=== PATIENT | female | born 1955 | race Caucasian/White ===

== ENCOUNTER 2019-09-27 07:33 | Outpatient (CLI) | payer BC, SELFPAY ==
[2019-09-27 08:31] LABS: Basophils Percent Auto 0.8 % (0.2-1.2); Eosinophils Absolute Auto 0.2 K/mm3 (0-0.3); Eosinophils Percent Auto 3.8 % (0-4.4); Hematocrit 46.6 % (37.0-47.0); Hemoglobin 14.6 g/dL (12.0-15.0); Immature Granulocyte Absolute 0.01 K/mm3 (0.00-0.031); Immature Granulocyte Percent A 0.2 % (0-0.5); Lymphocytes Absolute Auto 0.76 K/mm3 (0.9-3.2); Lymphocytes Percent Auto 16.1 % (18.3-44.2); Mean Corpuscular HGB Conc 31.3 g/dl (32-36); Mean Corpuscular Hemoglobin 28.7 pg (26-34); Mean Corpuscular Volume 91.7 fl (80-100); Mean Platelet Volume 10.4 fl (7.4-10.4); Monocytes Absolute Auto 0.3 K/mm3 (0.1-0.6); Monocytes Percent Auto 5.9 % (2.6-8.5); Neutrophils Absolute Auto 3.5 K/mm3 (1.3-6.7); Neutrophils Percent Auto 73.2 % (45.5-73.1); Platelet Count Result 221 k/mm3 (150-375); Red Blood Count 5.08 M/mm3 (4.2-5.4); Red Cell Distribution Width 14.5 % (11.5-14.5); White Blood Count 4.7 K/mm3 (4.5-10.0)
[2019-09-27 08:43] LABS: Hemoglobin A1C 5.7 % (<5.7)
[2019-09-27 08:56] LABS: Rheumatoid Factor < 8.6 IU/ML (<12)
[2019-09-27 09:03] LABS: Alanine Aminotransferase 29 U/L (4-35); Albumin Level 4.1 g/dL (3.5-5.1); Alkaline Phosphatase 57 U/L (38-126); Aspartate Amino Transferase 29 U/L (14-36); Bilirubin,Total 0.4 mg/dL (0.2-1.3); Blood Urea Nitrogen 16 mg/dL (7-17); CRP 1.2 mg/dL (<1.0); Calcium 9.2 mg/dL (8.4-10.2); Carbon Dioxide 29 mmol/L (22-30); Chloride 102 mmol/L (98-107); Cholesterol 147 mg/dL (0-200); Estimated Glomerular Filt Rate > 60; Glucose 101 mg/dL (65-105); HDL Direct 44 mg/dL; Potassium 4.3 mmol/L (3.4-5.0); Sodium 141 mmol/L (137-145); Triglycerides 116 mg/dL (<150)
[2019-09-27 09:14] LABS: LDL Cholesterol Direct 87 mg/dL
[2019-09-27 09:27] LABS: Erythrocyte Sedimentation Rate 12 mm/hr (0-20)
== END 2019-09-27 07:34 | disposition home or self-care (01) ==
PROVIDERS: PCP Family Medicine; Visit Provider Family Medicine
DX: L40.50 Arthropathic psoriasis, unspecified (principal); E11.9 Type 2 diabetes mellitus without complications; E78.5 Hyperlipidemia, unspecified; R60.0 Localized edema; Z68.42 Body mass index [BMI] 45.0-49.9, adult
CPT/HCPCS: 36415; 80053; 80061; 83036; 85025; 85652; 86140; 86430

== ENCOUNTER 2019-10-09 12:47 | Emergency (ER) | payer BC, SELFPAY ==
--- NOTE | ~2019-10-09 | XR_ITS ---
XR chest 2V DATE: 10/09/2019 13:39 INDICATION: Productive cough. Past smoker. TECHNIQUE: 2 views COMPARISON: 09/01/2018 2 view chest FINDINGS: Heart size is within normal limits. No hilar or mediastinal enlargement. No pulmonary infil trate or consolidation, pleural effusion or pulmonary vascular congestion or pneumothorax. Diffuse osteopenia. IMPRESSION: No active cardiopulmonary disease Reviewed, dictated and finalized at location B. TENDER
[2019-10-09 12:57] VITALS: BP 123/97; PULSE 89; RESP 16; TEMP 36.9; O2SAT 98
--- NOTE | 2019-10-09 13:24 | ED.URI ---
HPI - URI/Sore Throat General Chief Complaint: Upper Respiratory Infection Stated Complaint: Cough/phlegm Time Seen by Provider: 10/09/19 13:10 Source: patient Mode of arrival: ambulatory Limitations: no limitations History of Present Illness HPI Narrative: Kelly Soliz is a 63 yo female with a PMH of diabetes who comes to express care with a cough and feeling poorly for the last few days Related Data Home Medications Medication Instructions Recorded Confirmed cholecalciferol (vitamin D3) 25 mcg PO DAILY 10/09/19 10/09/19 [Vitamin D3] metformin 500 mg DAILY 10/09/19 10/09/19 pravastatin 40 mg DAILY 10/09/19 10/09/19 tacrolimus 0.1 % TOPICAL DAILY 10/09/19 10/09/19 Allergies Allergy/AdvReac Type Severity Reaction Status Date / Time ciprofloxacin Allergy Unknown Itching Verified 10/09/19 13:02 ioversol Allergy Unknown Itching Verified 10/09/19 13:02 Quinolones Allergy Unknown Itching Verified 10/09/19 13:02 Sulfa (Sulfonamide Allergy Unknown Itching Verified 10/09/19 13:02 Antibiotics) Contrast Media Allergy Severe Anaphylaxis Uncoded 10/09/19 13:02 Review of Systems Review of Systems: Narrative: CONSTITUTIONAL: Denies fever, chills, sweats. EYES: Denies visual changes, redness, discharge. ENT: Denies rhinorrhea, congestion, sore throat, otalgia. CARDIOVASCULAR: Denies chest pain, palpitations, edema. RESPIRATORY: Denies dyspnea, wheezing, mildly productive cough GASTROINTESTINAL: Denies abdominal pain, nausea, vomiting, diarrhea. GENITOURINARY: Denies dysuria, hematuria, abnormal discharge SKIN: Denies rash or itching. NEUROLOGIC: Denies numbness, or focal weakness. PSYCHIATRIC: Denies anxiety or depression. [facility] Family History Family History Father Family history of malignant neoplasm of stomach Family history of primary malignant neoplasm of liver Family history of throat cancer Family history of malignant neoplasm Mother Family history of diabetes mellitus in first degree relative Family history of malignant neoplasm Grandparent Family history of malignant neoplasm Social History Social History Smoking status: Never smoker Second hand tobacco smoke exposure: Yes Smoking end date: 08/06/03 Alcohol intake: never Gender identity (if verbalized by the patient): Female Comments At time of signature, I agree with nursing past medical, surgical, social and family history. There is no relevant family history pertinent to the presenting complaint. Exam Narrative: Exam Narrative: GENERAL: This is a well-nourished, well-developed patient, in mild distress. HEAD: normocephalic, atraumatic. EYES: Sclera clear/white. Vision is grossly intact. EARS: External ears normal, . Hearing grossly intact. NOSE: External nose normal with no obvious nasal discharge, nares without redness, no rhinorrhea. THROAT: Mucous membranes moist, posterior pharynx erythema. NECK: Neck supple, non-tender CARDIOVASCULAR: Regular rate and rhythm without murmurs, gallops, or rubs. RESPIRATORY: Diminished to auscultation. Breath sounds equal bilaterally. No wheezes, rales, or rhonchi. GASTROINTESTINAL: Abdomen soft, SKIN: warm, intact with no suspicious lesions or rash, good texture and turgor. NEURO: awake, alert, and oriented to person, place and time. There were no obvious focal neurologic abnormalities. Steady gait EXTREMITIES: Normal range of motion. BACK: Nontender without deformity or crepitance. No flank tenderness. Course Course Emergency Course: Chest x-ray neg for acute pathology Vital Signs Vital signs: Vital Signs Temperature 98.5 F 10/09/19 12:57 Pulse Rate 89 10/09/19 12:57 Respiratory Rate 16 10/09/19 12:57 Blood Pressure 123/97 H 10/09/19 12:57 Pulse Oximetry 98 10/09/19 12:57 Temperature 98.5 F 10/09/19 12:57 Pulse Rate 89 10/09/19 12:57 Respirato
== END 2019-10-09 14:20 | disposition home or self-care (01) ==
PROVIDERS: Emergency Provider Nurse Practitioner; PCP Family Medicine
DX: B34.9 Viral infection, unspecified (principal); J06.9 Acute upper respiratory infection, unspecified
CPT/HCPCS: 71046; 99213; G0463

== ENCOUNTER 2020-03-20 06:47 | Outpatient (CLI) | payer BC, SELFPAY ==
[2020-03-20 07:52] LABS: Basophils Absolute Auto 0.1 K/mm3 (0.0-0.1); Basophils Percent Auto 1.1 % (0.2-1.2); Eosinophils Absolute Auto 0.2 K/mm3 (0-0.3); Eosinophils Percent Auto 4.7 % (0-4.4); Hematocrit 44.3 % (37.0-47.0); Hemoglobin 14.1 g/dL (12.0-15.0); Immature Granulocyte Absolute 0.01 K/mm3 (0.00-0.031); Immature Granulocyte Percent A 0.2 % (0-0.5); Lymphocytes Absolute Auto 0.89 K/mm3 (0.9-3.2); Mean Corpuscular HGB Conc 31.8 g/dl (32-36); Mean Corpuscular Hemoglobin 29.4 pg (26-34); Mean Corpuscular Volume 92.3 fl (80-100); Mean Platelet Volume 10.8 fl (7.4-10.4); Monocytes Absolute Auto 0.4 K/mm3 (0.1-0.6); Monocytes Percent Auto 8.1 % (2.6-8.5); Neutrophils Absolute Auto 2.9 K/mm3 (1.3-6.7); Neutrophils Percent Auto 65.9 % (45.5-73.1); Platelet Count Result 225 k/mm3 (150-375); Red Cell Distribution Width 13.7 % (11.5-14.5); White Blood Count 4.5 K/mm3 (4.5-10.0)
[2020-03-20 07:59] LABS: Alanine Aminotransferase 32 U/L (4-35); Albumin Level 4.1 g/dL (3.5-5.1); Alkaline Phosphatase 55 U/L (38-126); Anion Gap 8 mmol/L (8-16); Aspartate Amino Transferase 32 U/L (14-36); Bilirubin,Total 0.6 mg/dL (0.2-1.3); Blood Urea Nitrogen 15 mg/dL (7-17); Carbon Dioxide 27 mmol/L (22-30); Chloride 104 mmol/L (98-107); Cholesterol 116 mg/dL (0-200); Estimated Glomerular Filt Rate > 60; Glucose 109 mg/dL (65-105); HDL Direct 40 mg/dL; Potassium 3.9 mmol/L (3.4-5.0); Sodium 139 mmol/L (137-145); Triglycerides 93 mg/dL (<150)
[2020-03-20 08:10] LABS: LDL Cholesterol Direct 58 mg/dL
[2020-03-20 10:56] LABS: Hemoglobin A1C 5.5 % (<5.7)
[2020-03-20 11:21] LABS: Creatinine Urine 286.1 mg/dL
[2020-03-20 11:24] LABS: MALB Creatinine Ratio 3.6 mg/g (0-30)
[2020-03-20 12:19] LABS: Microalbumin Urine Random 10.4 mg/L (0-16.7)
[2020-03-25 20:59] LABS: Vitamin D 1,25 (OH)2 Total 87 pg/mL (18-72); Vitamin D2 1,25 (OH)2 <8 pg/mL; Vitamin D3 1,25 (OH)2 87 pg/mL
== END 2020-03-20 06:48 | disposition home or self-care (01) ==
PROVIDERS: PCP Family Medicine; Visit Provider Family Medicine
DX: R79.89 Other specified abnormal findings of blood chemistry (principal); E78.2 Mixed hyperlipidemia; E11.59 Type 2 diabetes mellitus with other circulatory complications; L40.50 Arthropathic psoriasis, unspecified
CPT/HCPCS: 36415; 80053; 80061; 82043; 82652; 83036; 85025

== ENCOUNTER 2020-05-01 06:40 | Outpatient (CLI) | payer BC, SELFPAY ==
[2020-05-01 07:37] LABS: Uric Acid 5.3 mg/dL (2.5-7.5)
== END 2020-05-01 06:41 | disposition home or self-care (01) ==
PROVIDERS: PCP Family Medicine; Visit Provider Family Medicine
DX: L40.50 Arthropathic psoriasis, unspecified (principal)
CPT/HCPCS: 36415; 84550

== ENCOUNTER 2020-12-25 06:43 | Outpatient (CLI) | payer BC, SELFPAY ==
[2020-12-25 07:09] LABS: Basophils Percent Auto 0.8 % (0.2-1.2); Eosinophils Absolute Auto 0.3 K/mm3 (0-0.3); Eosinophils Percent Auto 4.7 % (0-4.4); Hematocrit 44.3 % (37.0-47.0); Hemoglobin 14.3 g/dL (12.0-15.0); Immature Granulocyte Absolute 0.01 K/mm3 (0.00-0.031); Immature Granulocyte Percent A 0.2 % (0-0.5); Lymphocytes Percent Auto 18.9 % (18.3-44.2); Mean Corpuscular HGB Conc 32.3 g/dl (32-36); Mean Corpuscular Hemoglobin 29.2 pg (26-34); Mean Corpuscular Volume 90.6 fl (80-100); Mean Platelet Volume 10.1 fl (7.4-10.4); Monocytes Absolute Auto 0.4 K/mm3 (0.1-0.6); Monocytes Percent Auto 7.8 % (2.6-8.5); Neutrophils Absolute Auto 3.6 K/mm3 (1.3-6.7); Neutrophils Percent Auto 67.6 % (45.5-73.1); Platelet Count Result 211 k/mm3 (150-375); Red Blood Count 4.89 M/mm3 (4.2-5.4); Red Cell Distribution Width 13.7 % (11.5-14.5); White Blood Count 5.3 K/mm3 (4.5-10.0)
[2020-12-25 07:23] LABS: Hemoglobin A1C 5.8 % (<5.7)
[2020-12-25 07:24] LABS: Alanine Aminotransferase 42 U/L (4-35); Alkaline Phosphatase 54 U/L (38-126); Anion Gap 5 mmol/L (8-16); Aspartate Amino Transferase 39 U/L (14-36); Bilirubin,Total 0.5 mg/dL (0.2-1.3); Blood Urea Nitrogen 13 mg/dL (7-17); Calcium 9.3 mg/dL (8.4-10.2); Carbon Dioxide 26 mmol/L (22-30); Chloride 109 mmol/L (98-107); Cholesterol 212 mg/dL (0-200); Estimated Glomerular Filt Rate > 60; Glucose 112 mg/dL (65-105); HDL Direct 40 mg/dL; Sodium 140 mmol/L (137-145); Triglycerides 173 mg/dL (<150); Uric Acid 6.2 mg/dL (2.5-7.5)
[2020-12-25 07:35] LABS: LDL Cholesterol Direct 125 mg/dL
[2020-12-25 09:00] LABS: Creatinine Urine 249.1 mg/dL
[2020-12-25 09:05] LABS: MALB Creatinine Ratio 4.7 mg/g (0-30); Microalbumin Urine Random 11.8 mg/L (0-16.7)
== END 2020-12-25 06:44 | disposition home or self-care (01) ==
LOC: ANHLAB 06:46
PROVIDERS: PCP Family Medicine; Visit Provider Family Medicine
DX: R63.5 Abnormal weight gain (principal); R53.82 Chronic fatigue, unspecified; I10 Essential (primary) hypertension; E78.2 Mixed hyperlipidemia; E11.59 Type 2 diabetes mellitus with other circulatory complications; E79.0 Hyperuricemia without signs of inflammatory arthritis and tophaceous disease
CPT/HCPCS: 36415; 80053; 80061; 82043; 83036; 84443; 84550; 85025

== ENCOUNTER 2021-06-08 14:47 | Outpatient (CLI) | payer BC, SELFPAY ==
[2021-06-08 15:40] LABS: Basophils Absolute Auto 0.1 K/mm3 (0.0-0.1); Basophils Percent Auto 0.9 % (0.2-1.2); Eosinophils Absolute Auto 0.2 K/mm3 (0-0.3); Eosinophils Percent Auto 3.5 % (0-4.4); Hematocrit 43.7 % (37.0-47.0); Immature Granulocyte Absolute 0.02 K/mm3 (0.00-0.031); Immature Granulocyte Percent A 0.4 % (0-0.5); Lymphocytes Absolute Auto 1.11 K/mm3 (0.9-3.2); Lymphocytes Percent Auto 20.6 % (18.3-44.2); Mean Corpuscular Hemoglobin 29.7 pg (26-34); Mean Corpuscular Volume 92.6 fl (80-100); Monocytes Absolute Auto 0.5 K/mm3 (0.1-0.6); Monocytes Percent Auto 8.5 % (2.6-8.5); Neutrophils Absolute Auto 3.6 K/mm3 (1.3-6.7); Neutrophils Percent Auto 66.1 % (45.5-73.1); Platelet Count Result 220 k/mm3 (150-375); Red Blood Count 4.72 M/mm3 (4.2-5.4); Red Cell Distribution Width 13.8 % (11.5-14.5); White Blood Count 5.4 K/mm3 (4.5-10.0)
[2021-06-08 15:52] LABS: Alanine Aminotransferase 48 U/L (4-35); Albumin Level 4.3 g/dL (3.5-5.1); Alkaline Phosphatase 51 U/L (38-126); Anion Gap 9 mmol/L (8-16); Aspartate Amino Transferase 38 U/L (14-36); Bilirubin,Total 0.5 mg/dL (0.2-1.3); Blood Urea Nitrogen 14 mg/dL (7-17); Calcium 9.2 mg/dL (8.4-10.2); Carbon Dioxide 28 mmol/L (22-30); Chloride 103 mmol/L (98-107); Estimated Glomerular Filt Rate > 60; Glucose 98 mg/dL (65-110); Potassium 4.1 mmol/L (3.4-5.0); Sodium 140 mmol/L (137-145)
[2021-06-08 18:29] LABS: Hepatitis B Surface Antigen Negative (Negative)
[2021-06-08 18:47] LABS: Hepatitis B Surface Anti Res Negative; Hepatitis C Virus Antibody Negative (Negative)
[2021-06-13 04:07] LABS: Hepatitis B Core Ab Total Nonreactive (Nonreactive)
[2021-06-13 10:43] LABS: NIL 0.02 IU/mL; Quantiferon TB Plus, 1T NEGATIVE (NEGATIVE); TB2-NIL 0.01 IU/mL
== END 2021-06-08 14:48 | disposition home or self-care (01) ==
LOC: ANHLAB 14:49
PROVIDERS: PCP Family Medicine; Visit Provider Physician Assistant
DX: Z51.81 Encounter for therapeutic drug level monitoring (principal); Z79.899 Other long term (current) drug therapy
CPT/HCPCS: 36415; 80048; 80076; 85025; 86480; 86704; 86706; 86803; 87340

== ENCOUNTER 2021-10-16 21:37 | Emergency (ER) | payer BC, SELFPAY ==
[2021-10-16 21:42] VITALS: BP 141/94; PULSE 98; RESP 20; TEMP 36.4; O2SAT 97
--- NOTE | 2021-10-16 22:34 | ED.LOWEXIN ---
HPI - Extremity Injury (Lower) General Chief Complaint: Extremity Injury, Lower Stated Complaint: lower back pain Time Seen by Provider: 10/16/21 22:00 History of Present Illness HPI Narrative: 66-year-old female presents the emergency room with acute onset of right lower back pain that radiates into her right hip. Patient states the pain is worse with lateral bend to the right and when bending forward. Denies dysuria, or fever. Denies injury or trauma. Reports back pain is alleviated with Tylenol and a heating pad. Related Data Home Medications Medication Instructions Recorded Confirmed tildrakizumab-asmn 100 mg/mL 100 mg SUBCUT [id number] ml 07/12/21 07/12/21 subcutaneous syringe Allergies Allergy/AdvReac Type Severity Reaction Status Date / Time ciprofloxacin Allergy Unknown Itching Verified 10/16/21 21:57 ioversol Allergy Unknown Itching Verified 10/16/21 21:57 Quinolones Allergy Unknown Itching Verified 10/16/21 21:57 Sulfa (Sulfonamide Allergy Unknown Itching Verified 10/16/21 21:57 Antibiotics) Contrast Media Allergy Severe Anaphylaxis Uncoded 07/12/21 16:04 Review of Systems Review of Systems: CONSTITUTIONAL: Denies fever, chills, or sweats. EYES: Denies visual changes, redness, or discharge. ENT: Denies rhinorrhea, congestion, sore throat, or otalgia. CARDIOVASCULAR: Denies chest pain, palpitations, or edema. RESPIRATORY: Denies cough or dyspnea. GASTROINTESTINAL: Denies abdominal pain, nausea, vomiting, or diarrhea. GENITOURINARY: Denies dysuria or hematuria. SKIN: Denies rash or itching. MUSCULOSKELETAL: Reports back pain. Denies joint pain, or myalgia. NEUROLOGIC: Denies headache, numbness, dizziness, or weakness. PSYCHIATRIC: Denies anxiety or depression. 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 Surgical History Surgical History H/O ventral hernia repair History of lumpectomy of right breast S/P RAUL (total abdominal hysterectomy) Family History Family History Father Family history of malignant neoplasm of stomach Family history of primary malignant neoplasm of liver Family history of throat cancer Family history of malignant neoplasm Mother Family history of diabetes mellitus in first degree relative Family history of malignant neoplasm Grandparent Family history of malignant neoplasm Social History Social History Social History: Smoking packs per day: 1.5 Smoking cigarettes per day: 30.0 Smoking status: Former smoker Tobacco type: cigarettes Second hand tobacco smoke exposure: No Smoking end date: 08/06/03 Alcohol intake: never Substance use: never Substance use type: does not use Gender identity (if verbalized by the patient): Female Sexual Orientation (if Verbalized by the Patient): Straight or Heterosexual Exam Narrative: GENERAL: Well-appearing, well-nourished, and in no acute distress. HEAD: Normocephalic, atraumatic. EYES: PERRLA and EOMI. ENT: Nares clear, no rhinorrhea or epistaxis. Mucous membranes moist. NECK: Supple. No adenopathy or masses. No carotid bruits or JVD CHEST: Clear to auscultation. No respiratory distress. No wheezes rales or rhonchi HEART: Regular rate and rhythm. No murmur heard. Normal peripheral pulses. ABDOMEN: Soft, nontender, nondistended, normal activ
[2021-10-16] MEDS: KETOROLAC (*BKC) 60 MG/2 ML VIAL IM (22:44)
== END 2021-10-16 22:53 | disposition home or self-care (01) ==
PROVIDERS: Emergency Provider Nurse Practitioner Family; PCP Family Medicine
DX: S39.012A Strain of muscle, fascia and tendon of lower back, initial encounter (principal); E78.2 Mixed hyperlipidemia; E11.59 Type 2 diabetes mellitus with other circulatory complications; E66.2 Morbid (severe) obesity with alveolar hypoventilation; L40.50 Arthropathic psoriasis, unspecified; Z85.3 Personal history of malignant neoplasm of breast; I42.9 Cardiomyopathy, unspecified; Z92.3 Personal history of irradiation; Z79.84 Long term (current) use of oral hypoglycemic drugs; Z87.891 Personal history of nicotine dependence; X58.XXXA Exposure to other specified factors, initial encounter
CPT/HCPCS: 96372; 99283; J1885

== ENCOUNTER 2021-10-21 15:42 | Outpatient (CLI) | payer BC, SELFPAY ==
--- NOTE | ~2021-10-21 | XR_ITS ---
XR lumbar spine min 4V DATE: 10/21/2021 16:28 INDICATION: Right hip pain. No injury. TECHNIQUE: AP, lateral, bilateral oblique views and coned lateral lumbosacral view COMPARISON: 06/17/2013 MRI lumbar spine 05/30/2013 lumbar spine FINDINGS: There is diffuse osteopenia. Mild dextroscoliosis of the lumbar spine. There is particularly prominent degenerative change at the apophyseal joints at L4-5 and especially L 5-S1. Moderate loss of disc space height at L1 to and L4-5. The sacroiliac joints appear normal. Abdominal aortic calcification. Status post ventral abdominal wall hernia repair. IMPRESSION: Osteopenia Mild dextroscoliosis Degenerative change Reviewed, dictated and finalized at location A.
--- NOTE | ~2021-10-21 | XR_ITS ---
XR hip RT 2V w AP pelvis DATE: 10/21/2021 16:27 INDICATION: Right hip pain TECHNIQUE: AP pelvis. AP and lateral views COMPARISON: The FINDINGS: No pelvic fracture or bone destruction. The pubic symphysis and sacroiliac joints are intac t. Hip joint spaces are symmetric and relatively preserved. No fracture, dislocation, avascular necro sis or bone destruction of the right hip. Evidence of prior ventral abdominal wall hernia repair. IMPRESSION: No significant abnormality of the right hip Reviewed, dictated and finalized at location A.
== END 2021-10-21 15:43 | disposition home or self-care (01) ==
PROVIDERS: PCP Family Medicine; Visit Provider Nurse Practitioner Gerontology
DX: M25.559 Pain in unspecified hip (principal); M54.50 Low back pain, unspecified; M85.88 Other specified disorders of bone density and structure, other site; M41.86 Other forms of scoliosis, lumbar region
CPT/HCPCS: 72110; 73502

== ENCOUNTER 2021-12-23 06:39 | Outpatient (CLI) | payer BC, SELFPAY ==
[2021-12-23 08:13] LABS: Basophils Percent Auto 0.9 % (0.2-1.2); Eosinophils Absolute Auto 0.2 K/mm3 (0-0.3); Eosinophils Percent Auto 4.1 % (0-4.4); Hematocrit 46.7 % (37.0-47.0); Hemoglobin 15.1 g/dL (12.0-15.0); Immature Granulocyte Absolute 0.01 K/mm3 (0.00-0.031); Immature Granulocyte Percent A 0.2 % (0-0.5); Lymphocytes Absolute Auto 0.91 K/mm3 (0.9-3.2); Lymphocytes Percent Auto 20.7 % (18.3-44.2); Mean Corpuscular HGB Conc 32.3 g/dl (32-36); Mean Corpuscular Hemoglobin 30.8 pg (26-34); Mean Corpuscular Volume 95.3 fl (80-100); Mean Platelet Volume 10.9 fl (7.4-10.4); Monocytes Absolute Auto 0.3 K/mm3 (0.1-0.6); Monocytes Percent Auto 7.5 % (2.6-8.5); Neutrophils Absolute Auto 2.9 K/mm3 (1.3-6.7); Neutrophils Percent Auto 66.6 % (45.5-73.1); Platelet Count Result 225 k/mm3 (150-375); Red Cell Distribution Width 13.8 % (11.5-14.5); White Blood Count 4.4 K/mm3 (4.5-10.0)
[2021-12-23 08:25] LABS: Alanine Aminotransferase 38 U/L (6-35); Albumin Level 4.3 g/dL (3.5-5.1); Alkaline Phosphatase 48 U/L (38-126); Anion Gap 7 mmol/L (8-16); Aspartate Amino Transferase 36 U/L (14-36); Bilirubin,Total 0.6 mg/dL (0.2-1.3); Blood Urea Nitrogen 17 mg/dL (7-17); Calcium 8.7 mg/dL (8.4-10.2); Carbon Dioxide 27 mmol/L (22-30); Chloride 103 mmol/L (98-107); Cholesterol 218 mg/dL (0-200); Estimated Glomerular Filt Rate > 60; Glucose 107 mg/dL (65-110); HDL Direct 39 mg/dL; Sodium 137 mmol/L (137-145); Triglycerides 174 mg/dL (<150)
[2021-12-23 08:26] LABS: Hemoglobin A1C 5.6 % (<5.7)
[2021-12-23 08:36] LABS: LDL Cholesterol Direct 139 mg/dL
== END 2021-12-23 06:40 | disposition home or self-care (01) ==
PROVIDERS: PCP Family Medicine; Referring Provider Dermatology; Visit Provider Family Medicine
DX: E78.2 Mixed hyperlipidemia (principal); E11.59 Type 2 diabetes mellitus with other circulatory complications; I42.9 Cardiomyopathy, unspecified; Z68.42 Body mass index [BMI] 45.0-49.9, adult
CPT/HCPCS: 36415; 80053; 80061; 83036; 84443; 85025

== ENCOUNTER 2022-02-10 09:47 | Outpatient (CLI) | payer BC, SELFPAY ==
--- NOTE | ~2022-02-10 | XR_ITS ---
EXAMINATION: XR chest 2V 02/10/2022 10:40 INDICATION: Rib pain PROCEDURE: 2 view chest COMPARISON: Comparison to multiple prior studies sequentially, with oldest reviewed study dated 08/2017. FINDINGS: The lungs are clear. The cardiomediastinal silhouette is within normal limits. There are no pleural effusions. There is no pneumothorax suspected. IMPRESSION: 1: NO ACUTE CARDIOPULMONARY DISEASE. Reviewed, dictated and finalized at location A.
--- NOTE | ~2022-02-10 | XR_ITS ---
EXAMINATION: XR thoracic spine 3V DATE: 02/10/2022 10:40 INDICATION: Neck pain TECHNIQUE: AP, lateral and lateral swimmer's views of the thoracic spine were obtained. COMPARISON: None. FINDINGS: There is no fracture, dislocation, or subluxation of the thoracic spine. The vertebral body heights are normal. There is mild loss of intervertebral disc space height at multiple levels. Thora cic levocurvature is noted. Small degenerative osteophytes project from the anterior endplates of mul tiple vertebral bodies. Moderate cervical spondylosis is noted. IMPRESSION: 1. Mild thoracic spondylosis. Reviewed, dictated and finalized at location B.
== END 2022-02-10 09:48 | disposition home or self-care (01) ==
PROVIDERS: PCP Family Medicine; Visit Provider Family Medicine
DX: S23.41XA Sprain of ribs, initial encounter (principal); M47.814 Spondylosis without myelopathy or radiculopathy, thoracic region
CPT/HCPCS: 71046; 72072

== ENCOUNTER 2022-11-10 06:54 | Outpatient (CLI) | payer MEDICARE, SELFPAY ==
[2022-11-10 07:12] LABS: Basophils Absolute Auto 0.1 K/mm3 (0.0-0.1); Eosinophils Absolute Auto 0.2 K/mm3 (0-0.3); Eosinophils Percent Auto 3.5 % (0-4.4); Hematocrit 47.8 % (37.0-47.0); Hemoglobin 15.2 g/dL (12.0-15.0); Immature Granulocyte Absolute 0.02 K/mm3 (0.00-0.031); Immature Granulocyte Percent A 0.4 % (0-0.5); Lymphocytes Absolute Auto 0.89 K/mm3 (0.9-3.2); Lymphocytes Percent Auto 18.5 % (18.3-44.2); Mean Corpuscular HGB Conc 31.8 g/dl (32-36); Mean Corpuscular Hemoglobin 30.6 pg (26-34); Mean Corpuscular Volume 96.4 fl (80-100); Monocytes Absolute Auto 0.4 K/mm3 (0.1-0.6); Monocytes Percent Auto 7.5 % (2.6-8.5); Neutrophils Absolute Auto 3.3 K/mm3 (1.3-6.7); Neutrophils Percent Auto 69.1 % (45.5-73.1); Platelet Count Result 206 k/mm3 (150-375); Red Blood Count 4.96 M/mm3 (4.2-5.4); Red Cell Distribution Width 13.9 % (11.5-14.5); White Blood Count 4.8 K/mm3 (4.5-10.0)
[2022-11-10 07:22] LABS: Alanine Aminotransferase 44 U/L (6-35); Albumin Level 4.3 g/dL (3.5-5.1); Alkaline Phosphatase 51 U/L (38-126); Anion Gap 6 mmol/L (8-16); Aspartate Amino Transferase 42 U/L (14-36); Bilirubin,Total 0.7 mg/dL (0.2-1.3); Blood Urea Nitrogen 13 mg/dL (7-17); Calcium 8.9 mg/dL (8.4-10.2); Carbon Dioxide 33 mmol/L (22-30); Chloride 102 mmol/L (98-107); Cholesterol 225 mg/dL (0-200); Estimated Glomerular Filt Rate > 60; Glucose 120 mg/dL (65-110); HDL Direct 44 mg/dL; Potassium 4.3 mmol/L (3.4-5.0); Sodium 141 mmol/L (137-145); Triglycerides 194 mg/dL (<150)
[2022-11-10 07:33] LABS: LDL Cholesterol Direct 132 mg/dL
[2022-11-10 08:00] LABS: Hemoglobin A1C 5.7 % (<5.7)
== END 2022-11-10 06:55 | disposition home or self-care (01) ==
PROVIDERS: PCP Family Medicine; Visit Provider Nurse Practitioner Gerontology
DX: E11.59 Type 2 diabetes mellitus with other circulatory complications (principal); E78.2 Mixed hyperlipidemia
CPT/HCPCS: 36415; 80053; 80061; 83036; 85025

== ENCOUNTER 2023-05-19 06:45 | Outpatient (CLI) | payer MEDICARE, SELFPAY ==
[2023-05-19 07:44] LABS: Basophils Percent Auto 0.8 % (0.2-1.2); Eosinophils Absolute Auto 0.1 K/mm3 (0-0.3); Eosinophils Percent Auto 2.5 % (0-4.4); Hematocrit 45.4 % (37.0-47.0); Hemoglobin 14.6 g/dL (12.0-15.0); Immature Granulocyte Absolute 0.01 K/mm3 (0.00-0.031); Immature Granulocyte Percent A 0.2 % (0-0.5); Lymphocytes Absolute Auto 0.75 K/mm3 (0.9-3.2); Lymphocytes Percent Auto 15.5 % (18.3-44.2); Mean Corpuscular HGB Conc 32.2 g/dl (32-36); Mean Corpuscular Hemoglobin 30.3 pg (26-34); Mean Corpuscular Volume 94.2 fl (80-100); Mean Platelet Volume 10.8 fl (7.4-10.4); Monocytes Absolute Auto 0.4 K/mm3 (0.1-0.6); Monocytes Percent Auto 8.7 % (2.6-8.5); Neutrophils Absolute Auto 3.5 K/mm3 (1.3-6.7); Neutrophils Percent Auto 72.3 % (45.5-73.1); Platelet Count Result 224 k/mm3 (150-375); Red Blood Count 4.82 M/mm3 (4.2-5.4); Red Cell Distribution Width 14.1 % (11.5-14.5); White Blood Count 4.8 K/mm3 (4.5-10.0)
[2023-05-19 07:54] LABS: Alanine Aminotransferase 35 U/L (6-35); Albumin Level 4.3 g/dL (3.5-5.1); Alkaline Phosphatase 38 U/L (38-126); Anion Gap 6 mmol/L (8-16); Aspartate Amino Transferase 36 U/L (14-36); Bilirubin,Total 0.8 mg/dL (0.2-1.3); Blood Urea Nitrogen 16 mg/dL (7-17); Carbon Dioxide 32 mmol/L (22-30); Chloride 102 mmol/L (98-107); Cholesterol 129 mg/dL (0-200); Estimated Glomerular Filt Rate 56; Glucose 92 mg/dL (65-110); HDL Direct 35 mg/dL; Potassium 3.1 mmol/L (3.4-5.0); Sodium 140 mmol/L (137-145); Triglycerides 119 mg/dL (<150)
[2023-05-19 08:05] LABS: LDL Cholesterol Direct 72 mg/dL
[2023-05-19 09:54] LABS: Hemoglobin A1C 5.3 % (<5.7)
== END 2023-05-19 06:46 | disposition home or self-care (01) ==
LOC: ANHLAB 06:47
PROVIDERS: PCP Family Medicine; Visit Provider Physician Assistant
DX: E11.59 Type 2 diabetes mellitus with other circulatory complications (principal); E78.2 Mixed hyperlipidemia
CPT/HCPCS: 36415; 80053; 80061; 83036; 85025

== ENCOUNTER 2023-06-01 06:33 | Outpatient (CLI) | payer MEDICARE, SELFPAY ==
[2023-06-01 07:05] LABS: Anion Gap 6 mmol/L (8-16); Blood Urea Nitrogen 15 mg/dL (7-17); Carbon Dioxide 29 mmol/L (22-30); Chloride 103 mmol/L (98-107); Estimated Glomerular Filt Rate > 60; Glucose 102 mg/dL (65-110); Potassium 3.8 mmol/L (3.4-5.0); Sodium 138 mmol/L (137-145)
== END 2023-06-01 06:34 | disposition home or self-care (01) ==
PROVIDERS: PCP Family Medicine; Visit Provider Physician Assistant
DX: E87.6 Hypokalemia (principal)
CPT/HCPCS: 36415; 80048

== ENCOUNTER 2023-11-10 06:56 | Outpatient (CLI) | payer MEDICARE, SELFPAY ==
[2023-11-10 07:16] LABS: Basophils Percent Auto 0.9 % (0.2-1.2); Eosinophils Absolute Auto 0.2 K/mm3 (0-0.3); Eosinophils Percent Auto 3.4 % (0-4.4); Hematocrit 45.3 % (37.0-47.0); Hemoglobin 14.6 g/dL (12.0-15.0); Immature Granulocyte Absolute 0.01 K/mm3 (0.00-0.031); Immature Granulocyte Percent A 0.2 % (0-0.5); Lymphocytes Absolute Auto 0.79 K/mm3 (0.9-3.2); Mean Corpuscular HGB Conc 32.2 g/dl (32-36); Monocytes Absolute Auto 0.3 K/mm3 (0.1-0.6); Monocytes Percent Auto 7.3 % (2.6-8.5); Neutrophils Absolute Auto 3.1 K/mm3 (1.3-6.7); Neutrophils Percent Auto 70.2 % (45.5-73.1); Platelet Count Result 217 k/mm3 (150-375); Red Blood Count 4.87 M/mm3 (4.2-5.4); Red Cell Distribution Width 13.7 % (11.5-14.5); White Blood Count 4.4 K/mm3 (4.5-10.0)
[2023-11-10 07:26] LABS: Alanine Aminotransferase 31 U/L (6-35); Albumin Level 4.1 g/dL (3.5-5.1); Alkaline Phosphatase 44 U/L (38-126); Anion Gap 4 mmol/L (4-12); Aspartate Amino Transferase 28 U/L (14-36); Bilirubin,Total 0.7 mg/dL (0.2-1.3); Blood Urea Nitrogen 16 mg/dL (7-17); Calcium 9.6 mg/dL (8.4-10.2); Carbon Dioxide 29 mmol/L (22-30); Chloride 105 mmol/L (98-107); Cholesterol 134 mg/dL (0-200); Estimated Glomerular Filt Rate > 60; Glucose 94 mg/dL (65-110); HDL Direct 41 mg/dL; Potassium 3.8 mmol/L (3.4-5.0); Sodium 138 mmol/L (137-145); Triglycerides 111 mg/dL (<150)
[2023-11-10 07:37] LABS: LDL Cholesterol Direct 83 mg/dL
[2023-11-10 08:58] LABS: Hemoglobin A1C 5.3 % (<5.7)
== END 2023-11-10 06:57 | disposition home or self-care (01) ==
LOC: ANHLAB 06:59
PROVIDERS: PCP Family Medicine; Visit Provider Physician Assistant
DX: I42.9 Cardiomyopathy, unspecified (principal); E11.59 Type 2 diabetes mellitus with other circulatory complications; E78.2 Mixed hyperlipidemia; K76.0 Fatty (change of) liver, not elsewhere classified
CPT/HCPCS: 36415; 80053; 80061; 83036; 85025

== ENCOUNTER 2024-02-01 06:32 | Outpatient (CLI) | payer MEDICARE, SELFPAY ==
--- NOTE | ~2024-02-01 | XR_ITS ---
EXAMINATION: XR lumbar spine 2-3V DATE: 02/01/2024 07:05 INDICATION: Low back pain, unspecified. TECHNIQUE: 3 views of lumbar spine were obtained. COMPARISON: Lumbar spine radiographs 10/21/2021 FINDINGS: There is 5 degrees dextrocurvature of thoracolumbar spine. Vertebral body heights are jenn l. There is mildly decreased disc height at L1-L2 and L4-L5. There is multilevel facet joint osteoart hritis, severe in lower lumbar spine. Surgical clips overlie the abdomen. IMPRESSION: 1. Mild lumbar spondylosis. Reviewed, dictated and finalized at location A. IMPRESSION: 1. Mild lumbar spondylosis.
--- NOTE | ~2024-02-01 | XR_ITS ---
EXAMINATION: XR hip LT min 2V DATE: 02/01/2024 07:05 INDICATION: Left hip pain. TECHNIQUE: 2 views of left hip were obtained. COMPARISON: None. FINDINGS: Bone alignment is normal. No fracture. There is mild left hip osteoarthritis. Osteitis pubi s is noted. Surgical clips overlie the abdomen. IMPRESSION: 1. Mild left hip osteoarthritis. Reviewed, dictated and finalized at location A.
== END 2024-02-01 06:33 | disposition home or self-care (01) ==
PROVIDERS: PCP Family Medicine; Visit Provider Physician Assistant
DX: M54.50 Low back pain, unspecified (principal); M25.552 Pain in left hip; M43.06 Spondylolysis, lumbar region; M16.12 Unilateral primary osteoarthritis, left hip
CPT/HCPCS: 72100; 73502

== ENCOUNTER 2024-08-19 10:34 | Outpatient (CLI) | payer MEDICARE, SELFPAY ==
--- NOTE | ~2024-08-19 | XR_ITS ---
XR_[id number] Ordering provider: Carol Ann Desir DO History: . M62.830 - Muscle spasm of back . Comparison: None. FINDINGS: VERTEBRAL BODIES: Normal height and alignment. No visible fracture or subluxation. The dens is intact . Degenerative changes of the spine. DISK SPACES: Narrowing of the disc C5-C6. Multilevel uncovertebral joint osteoarthritic changes. PARASPINOUS SOFT TISSUES: No prevertebral soft tissue swelling. IMPRESSION: No acute osseous abnormality cervical spine. Degenerative disc disease at the level of C5-C6. Reviewed, dictated and finalized at location A. ANTLER
--- NOTE | ~2024-08-19 | XR_ITS ---
Thoracic spine: Clinical Indication: Muscle spasm AP and lateral views were performed. No fracture is seen. There is normal alignment of the vertebrae. There is mild degenerative disc franklin nge, especially the lower thoracic spine. Paravertebral soft tissues appear normal. Impression: Mild degenerative spondylosis, as above. Reviewed, dictated and finalized at location . WASHER Impression: Mild degenerative spondylosis, as above.
== END 2024-08-19 10:35 | disposition home or self-care (01) ==
LOC: ANHIMG 10:37
PROVIDERS: PCP Family Medicine; Visit Provider Family Medicine
DX: M47.894 Other spondylosis, thoracic region (principal); M50.322 Other cervical disc degeneration at C5-C6 level
CPT/HCPCS: 72040; 72072

== ENCOUNTER 2024-09-20 07:04 | Outpatient (CLI) | payer MEDICARE, SELFPAY ==
--- OUTSIDE RECORDS SUMMARY | 2024-09-20 07:07 | XMS_ITS | Clinical Summary ---
Author Organization [facility] Address [address] [place] [address] Care Team Providers Care Counter Dish Carrier Name Role Phone Carol Ann Desir Primary Care Provider [phone] Source Comments [facility],non-owned Affiliates and Associated Physician Practices is amultiple site organization consisting of ambulatory clinics and hospital sitesin [place], [place], [place] and [place]. This disclosure is being madepursuant to the Care Everywhere program and may not contain all information available regarding this patient. Last updated 18.[facility] Allergies Active Allergy Reactions Criticality Noted Date Comments Ciprofloxacin Itching Low Contrast-Iodinated Agents For Ct/Other Other Low 06/18/2015 Trouble breathing Quinolones Skin Reactions Medium Sulfa Drugs Itching Low 06/18/2015 Medications * Be aware that medications may not be up to date on this document. Alwaysverify current medications with the patient. Medication Sig Dispensed Refills Start Date End Date Status metFORMIN (GLUCOPHAGE) 500 MG tablet 12/06/2016 Active tacrolimus (PROTOPIC) 0.1 % ointment 100 g 5 12/25/2016 Active pravastatin (PRAVACHOL) 40 MG tablet 12/06/2016 Active Vitamin D3 (CHOLECALCIFEROL) 2000 UNITS capsule Take by mouth. 12/25/2016 Ac tive Apremilast (OTEZLA) 30 MG Take by mouth 2 times daily Active Ivermectin (SOOLANTRA) 1 % To face prn Active senna-docusate (SENOKOT-S) 8.6-50 MG tablet Take 1 tablet by mouth once daily 30 tablet 02/28/2019 Active Additional Information Patient not taking.Reported on 09/24/2019 acetaminophen (TYLENOL) 325 MG tablet Take 2 tablets by mouth every 6 hours as needed for Pain Maximum allowable Acetaminophen amount = 4 Grams (4000 mg) / 24 hours. 30 tablet 02/28/2019 Active Additional Information Patient not taking.Reported on 09/24/2019 ibuprofen (MOTRIN) 600 MG tablet Take 1 tablet by mouth every 6 hours as needed for Pain 30 tablet 02/28/2019 Active Additional Information Patient not taking.Reported on 09/24/2019 oxyCODONE (OXY-IR) 5 MG capsule Take 1 capsule by mouth every 6 hours as needed for Pain 30 tablet 02/28/2019 Active Additional Information Patient not taking.Reported on 09/24/2019 Active Problems No known active problems Family History Medical History Relation Name Comments Cancer Father prostate Psoriasis Father CVA Mother Cancer Mother lung Allergy (Severe) Neg Hx Cancer - Breast Neg Hx Cancer - Skin, Melanoma Neg Hx Cancer - Skin, Non Melanoma Neg Hx Eczema Neg Hx Hemophilia Neg Hx Rashes/Skin Problems Neg Hx Relation Name Status Comments Father Mother Social History Tobacco Use Types Packs/Day Years Used Date Smoking Tobacco: Former Cigarettes Smokeless Tobacco: Never Alcohol Use Standard Drinks/Week Comments No 0 (1 standard drink = 0.6 oz pur e alcohol) Sex and Gender Information Value Date Recorded Sex Assigned at Not on file Gender Identity Not on file Sexual Orientation Not on file Last Filed Vital Signs Vital Sign Reading Time Taken Comments Blood Pressure 121/80 06/04/2024 9:20 AM CDT Pulse 76 06/04/2024 9:20 AM CDT Temperature 36.4 C (97.6 F) 03/22/2020 2:56 PM CDT Respiratory Rate 16 06/04/2024 9:20 AM CDT Oxygen Saturation 96% 06/04/2024 9:20 AM CDT Inhaled Oxygen Concentration - - Weight 108 kg (238 lb) 06/04/2024 9:20 AM CDT Height 167.6 cm (5' 6 ) 06/04/2024 9:20 AM CDT Body Mass Index 38.41 06/04/2024 9:20 AM CDT Plan of Treatment Health Maintenance Due Date Last Done Comments COLOGUARD (AGES 45-75) - COLON CA SCREENING 1957 COLON MONITORING 1957 COLONOSCOPY - COLON CA SCREENING 1957 CT COLONOGRAPHY - COLON CA SCREENING 1957 Colorectal Cancer Screening 1957 FIT - COLON CA SCREENING 1957 FLEX SIG - COLON CA SCREENING 1957 HEPATITIS C SCREENING 10/09/1975 DTAP/TDAP/TD VACCINES (1 - Tdap) 1976 PNEUMOCOCCAL VACCINE 50+ (1 of 1 - PCV) 10/14/2007 ZOSTER VACCINE (1 of 2) 10/14/2007 MAMMOGRAM 07/09/2017 07/09/2015, 11/2014, 02/24/2014, Additional history exists COVID-19 VACCINE (1 - 2023- season) 2024 INFLUENZA VACCINE (#1) 2024 SCREENING FOR DIABETES 05/07/2024 9, 02/28/2019, 02/18/2019, Additional history exists DEPRESSION SCREENING 08/06/2024 MEDICARE AWV CALENDAR YEAR 2024 Respiratory Syncytial Virus (RSV) Vaccine Pt: or over 60 yrs (1 - 1-dose 75+ series) 2032 BONE DENSITY TESTING Completed 07/28/2016 HEPATITIS B VACCINE Aged Out No longe r eligible based on patient's age to complete this topic HIB VACCINE Aged Out No longer eligi ble based on patient's age to complete this topic HPV VACCINE Aged Out No longer eligi ble based on patient's age to complete this topic MENINGOCOCCAL (Group B) VACCINE Aged Out No longer eligible based on patient's age to complete this topic MENINGOCOCCAL VACCINE Aged Out No raphael nadya eligible based on patient's age to complete this topic Medical Devices Implanted Type Area Mechanical Cad Designer Device Identifier Shelf Expiration Date Model / Serial / Lot Mesh Srg Ventralight St Sepra Echo Implanted:Qty: 1 on 02/28/2019 by Vesna Ba MD at [facility] N/A: Abdomen [employer] 11/01/2019 [id number] / / [id number] Procedures Procedure Name Priority Date/Time Associated Diagnosis Comments GLUCOSE - POINT OF CARE Routine 02/28/2019 11:43 AM CDT from Last 3 Months or Most Recently Relevant to Health Maintenance Results * (ABNORMAL) GLUCOSE - POINT OF CARE (02/28/2019 11:43 AM CDT) Glucose WB/POC 111(H) 70 - 106 mg/dL 02/28/2019 11:55 AM CDT [facility] Specimen Type Venous 02/28/2019 11:55 AM CDT [facility] Blood BLOOD SPECIMEN / Unknown 02/28/2019 11:43 AM CDT 02/28/2019 11:55 AM CDT Vesna Ba MD LAB - POINT OF CARE ORDERABLES Performing Organization Address City/State/[facility] Co de Phone Number [facility] [address] [place] [address] from Last 3 Months or Most Recently Relevant to Health Maintenance Care Teams Counter Dish Carrier Relationship Specialty Start Date End Date Carol Ann Desir DO PCP - General Student Resident 05/07/24
--- OUTSIDE RECORDS SUMMARY | 2024-09-20 07:07 | XMS_ITS | Referral Summary ---
Author Organization [facility] [employer] Address [address] [place] [address] Care Team Providers Care Business Systems Technician Name Role Phone Carol Ann Desir Primary Care Provider [phone] Source Comments [facility] [employer],non-owned Affiliates and Associated Physician Practices is amultiple site organization consisting of ambulatory clinics and hospital sitesin [place], [place], [place] and [place]. This disclosure is being madepursuant to the Care Everywhere program and may not contain all information available regarding this patient. Last updated 18.[facility] [employer] Allergies Active Allergy Reactions Criticality Noted Date [...] 09/24/2019 Active Problems No known active problems Social History Tobacco Use Types Packs/Day Years [...] 06/04/2024 9:20 AM CDT Plan of Treatment Not on file Medical Devices Implanted Type Area Owner Consulting Engineer Device Identifier Shelf Expiration Date Model / Serial / Lot Mesh Srg Ventralight St Sepra Echo Implanted:Qty: 1 on 02/28/2019 by Vesna Ba MD at [facility] N/A: Abdomen [employer] 11/01/2019 [id number] / / [id number] Procedures Procedure Name Priority Date/Time Associated Diagnosis Comments GLUCOSE - POINT OF CARE Routine 02/28/2019 11:43 AM CDT from Last 3 Months or Most Recently Relevant to Health Maintenance Results * (ABNORMAL) GLUCOSE - POINT OF CARE (02/28/2019 11:43 AM CDT) Glucose WB/POC 111(H) 70 - 106 mg/dL 02/28/2019 11:55 AM CDT [facility] Specimen Type Venous 02/28/2019 11:55 AM CDT [facility] Blood BLOOD SPECIMEN / Unknown 02/28/2019 11:43 AM CDT 02/28/2019 11:55 AM CDT Vesna Ba MD LAB - POINT OF CARE ORDERABLES [facility] [address] [place] [address] from Last 3 Months or Most Recently Relevant to Health Maintenance Care Teams Business Systems Technician Relationship Specialty Start Date End Date Carol Ann Desir DO PCP - General Student Resident 05/07/24
--- OUTSIDE RECORDS SUMMARY | 2024-09-20 07:07 | XMS_ITS | Clinical Summary ---
Author Organization [facility] Address [address] [place] [address] Phone Care Team Providers Care Loan Workout Officer Name Role Phone Jacki Barrientos MD Unavailable [phone] Arash Pollard MD Unavailable [phone] Mychal Álvarez MD Unavailable [phone] Virgen Cueva Unavailable Unavailable Provider, Not On File Primary Care Provider Unav ailable Allergies Active Allergy Reactions Criticality Noted Date Comments Ciprofloxacin Itching Iodinated Contrast Media Other (see Comments) 06/18/2015 Trouble breathing Quinolones Hives Sulfa Antibiotics Itching 06/18/2015 Medications tacrolimus (PROTOPIC) 0.1 % Ointment Apply 1 Tube 2 times daily. Apply thin film to affected area(s) as directed. Active Calcium Carbonate (CALCIUM 600 PO) Take 600 mg by mouth 2 times daily. Reported on 10/24/2016 Active Cholecalciferol (VITAMIN D3) 2000 UNIT Capsule Take by mouth. Activ e metFORMIN (GLUCOPHAGE) 500 MG Tablet Take 1 Tab by mouth daily. 90 Tab 5 7 Active Additional Information Patient taking differently: 1,000 mgOral DAILY, Reported on 05/14/2024 pravastatin (PRAVACHOL) 40 MG Tablet Take 1 Tab by mouth daily. 90 Tab 5 7 Active clobetasol (TEMOVATE) 0.05 % Ointment Apply 2 times daily. Active fexofenadine (ROMA) 180 MG TabletIndicatio ns:Itchy skin of anus and genitals Take 1 Tab by mouth daily. 30 Tab 3 7 Active furosemide (LASIX) 20 MG Tablet Take 20 mg by mouth daily. Active rosuvastatin (CRESTOR) 5 MG Tablet Take 5 mg by mouth daily. Active Ozempic, 2 MG/DOSE, 8 MG/3ML Solution Pen-injector 2 mg by Subcutaneous route once a week. TAKES ON FRIDAYS. INSTRUCTED TO HOLD FOR 7 DAYS PRIOR TO SURGERY ON 06/30/2024 Active spironolactone (ALDACTONE) 25 MG Tablet Take 25 mg by mouth daily. Active Apremilast (Otezla) 30 MG Tablet Take 2 Tablets by mouth daily. Active cyclobenzaprine (FLEXERIL) 5 MG Tablet Take 5 mg by mouth 3 times daily as needed for Muscle spasms. Active Active Problems Problem Noted Date Diagnosed Date Psoriasis 12/17/2015 Obesity, morbid, BMI 50 or higher 09/17/2015 Prediabetes 09/17/2015 HLD (hyperlipidemia) 09/17/2015 Fatty liver disease, nonalcoholic 09/17/2015 Malignant neoplasm of breast, right Cancer Staging:Clinical stage from 02/24/2014:Stage IA(T1, N0, cM0) - Unsigned Pathologic: T1c, N0, cM0 - Unsigned Resolved Problems Problem Noted Date Diagnosed Date Resolved Date Osteoporosis 10/22/2015 09/01/2016 Encounters Date Type Department Care Team Description 06/30/2024 10:11 AM LENS ASSORTER Anesthesia Event [facility] Periop [address] [place] [address] Curtis Arthur MD 06/30/2024 10:00 AM LENS ASSORTER - 06/30/2024 10:20 AM LENS ASSORTER Surgery [facility] [address] [place] [address] Dina Edward MD PhD CATARACT EXTRACTION WITH INTRAOCULAR LENS PLACEMENT, RIGHT EYE 06/30/2024 8:20 AM LENS ASSORTER - 06/30/2024 10:48 AM LENS ASSORTER Hospital Encounter [facility] Preop/Pacu II [address] [place] [address] Dina Edward MD PhD Discharge Disposition: Discharged to home or Selfcare 06/30/2024 Travel from Last 3 Months Immunizations Immunization Administration Dates Next Due PUR TDAP 7+ YRS IM 09/06/2016 Family History Medical History Relation Name Comments Cancer Father Laryngeal Diabetes Mother Heart Disease Mother Hypertension Mother Lung Cancer Mother Stroke Mother Breast Cancer Sister Relation Name Status Comments Father Mother Sister Social History Tobacco Use Types Packs/Day Years Used Date Smoking Tobacco: Former Cigarettes 2 5 0 08/06/1989 - 08/06/1994 Smokeless Tobacco: Never Tobacco Cessation:Counseling Given: Not Answered Alcohol Use Standard Drinks/Week Comments No 0 (1 standard drink = 0.6 oz pur e alcohol) Comments No Sex and Gender Information Value Date Recorded Sex Assigned at Not on file Legal Sex Female 8:58 PM CDT Gender Identity Not on file Sexual Orientation Not on file Last Filed Vital Signs Vital Sign Reading Time Taken Comments Blood Pressure 120/70 06/30/2024 10:44 AM LENS ASSORTER Pulse 75 06/30/2024 8:34 AM LENS ASSORTER Temperature 37.1 C (98.8 F) 06/30/2024 10:44 AM LENS ASSORTER Respiratory Rate 16 06/30/2024 10:44 AM LENS ASSORTER Oxygen Saturation 97% 06/30/2024 10:44 AM LENS ASSORTER Inhaled Oxygen Concentration - - Weight 108 kg (238 lb) 06/18/2024 1:53 PM LENS ASSORTER Height 167.6 cm (5' 6 ) 06/18/2024 1:53 PM LENS ASSORTER Body Mass Index 38.41 06/18/2024 1:53 PM LENS ASSORTER Plan of Treatment Health Maintenance Due Date Last Done Comments Hepatitis C Virus (HCV) Screening 1955 Pneumococcal Immunization (5 0+ years) (1 of 2 - PCV) 1976 Zoster Immunization (1 of 2) 1976 Cologuard 10/14/2007 Immunochemical Fecal Occult Blood 10/14/2007 Mammogram 07/09/2016 07/09/2015, 01/26/2014 DEXA Bone Density 07/28/2018 07/28/2016 Influenza Immunization (#1) 2024 SARS-COV-2 Immunization ( season) 2024 07/23/2021, 11/12/2020, 10/20/2020 Colonoscopy 11/02/2025 11/03/2015 Colorectal Cancer Screening 11/02/2025 Td Immunization Every 10 Yea rs (Adults With 1 Tdap) 09/06/2026 09/06/2016 Respiratory Syncytial Virus (RSV) Immunization (Adult) (1 - 1-dose 75+ series) 2032 11/03/2015 Hepatitis B Immunization Aged Out No longer eligible based on patient's age to complete this topic Meningococcal Immunization (ACWY) Aged Out No longer eligible b ased on patient's age to complete this topic Rotavirus Immunization Aged Out No lo nger eligible based on patient's age to complete this topic Medical Devices Implanted Type Area Restaurant Hourly Manager Device Identifier Shelf Expiration Date Model / Serial / Lot Technis 1-Piece Iol With Simplicity Delivery Sysetm Implanted:Qty: 1 on 05/26/2024 by Dina Edward MD PhD at [facility] 06/14/2026 [id number] / [id number] / [id number] Right Lens Implanted:Qty: 1 on 06/30/2024 by Dina Edward MD PhD at [facility] Right: Eye [employer] 07/07/2026 [id number] / [id number] / [id number] Procedures Procedure Name Priority Date/Time Associated Diagnosis Comments CATARACT EXTRACTION WITH IOL IMPLANT 06/30/2024 10:07 AM LENS ASSORTER VISUALLY SIGNIFICANT CATARACT, RIGHT EYE Special Needs hx of diabetes (instructed to hold Ozempic for 7 days prior to surgery) right breast cancer, psoriasis 5ft 6in 238lb POCT GLUCOSE Routine 06/30/2024 8:38 AM LENS ASSORTER THEE BONE DENSITOMETRY AXIAL SKELETON Routine 07/28/2016 8:27 AM LENS ASSORTER Osteoporosis HM COLONOSCOPY Routine 11/03/2015 [facility] DIAG BILATERAL DIGITAL W CAD Routine 07/09/2015 9:50 AM LENS ASSORTER Malignant neoplasm of right female breast, unspecified site of breast from Last 3 Months or Most Recently Relevant to Health Maintenance Results * POCT Glucose (06/30/2024 8:38 AM LENS ASSORTER) GLUCOSE,BEDSIDE POCT 90 70 - 99 mg/dL 06/30/2024 8:45 AM LENS ASSORTER [facility] Comment:Patient RN Performed Blood 06/30/2024 8:38 AM LENS ASSORTER 06/30/2024 8:44 AM LENS ASSORTER us None Provider POINT OF CARE TESTING Final Resu lt [facility] [place] [address] * [facility] BONE DENSITOMETRY AXIAL SKELETON (07/28/2016 8:27 AM LENS ASSORTER) Anatomical Region Laterality Modality BODY N/A Other 07/28/2016 9:14 AM LENS ASSORTER Impressions 07/28/2016 9:18 AM LENS ASSORTER IMPRESSION: Low bone mass Bone mineral density: Normal (T-score above or = -1.0) Low bone mass (T-score between -1.0 and -2.5) replaces the previously used term osteopenia Osteoporosis (T-score = or below -2.5) Medical evaluation for secondary causes of low bone mineral density may be appropriate. FRAX is a World Health Organization validated fracture risk assessment tool that calculates a person's 10 year probability of a major osteoporosis related fracture and hip fracture. According to the National Osteoporosis Foundation guidelines, postmenopausal women and men age 50 or older with low bone mass and a 10 year probability of a major osteoporosis related fracture = or greater than 20% or a 10 year probability of a hip fracture = or greater than 3% should be considered for treatment. For further information, including treatment recommendations, please refer to the 2013 ISCD Official Positions (http://www.iscd.org) and the NOF's Clinician's Guide to Prevention and Treatment of Osteoporosis (http://www.nof.org/professionals/clinical-guidelines) Narrative 07/28/2016 9:18 AM LENS ASSORTER EXAMINATION: DXA Bone Density HISTORY: 60 year old female with given history of screening. Current Height: 64 inches Maximum Height: Not known inches Weight: 300 pounds RISK FACTORS: None COMPARISON(S): 04/18/2014 CULINARY INTERN/MODEL: Modustri (S/N [id number]) FINDINGS: AP lumbar spine L1-L4 Total BMD is 0.89 g/zo4X-gkbaz is -2.5 Most recent prior BMD was 0.81 g/cm2 There has been a 9.8% increase in BMD which is statistically significant. Left Hip Current Total BMD is 0.98 g/ft2H-aixmb is -0.3 Most recent prior Total BMD was 1.0 g/cm2 There has been a 3.6% decrease in BMD which is statistically significant. Current femoral neck BMD is 0.89 g/ty8T-xypah is -1.0 Fracture risk assessment (FRAX): 10 year risk for a major osteoporotic fracture is 5.5 % 10 year risk for a hip fracture is 0.3 % The FRAX tool has not been validated in patients currently or previously treated with pharmacotherapy for osteoporosis. In such patients, clinical judgement must be exercised in interpreting FRAX scores as the fracture risk may be overestimated. THIS IS AN ELECTRONICALLY VERIFIED REPORT 07/28/2016 9:14 AM: Jamari Masterson M.D. Radiologist AR:janene JOSTIN Procedure Note Corey Medina MD - 07/28/2016 EXAMINATION: DXA Bone Density HISTORY: 60 year old female with given history of screening. Current Height: 64 inches Maximum Height: Not known inches Weight: 300 pounds RISK FACTORS: None COMPARISON(S): 04/18/2014 CULINARY INTERN/MODEL: Modustri (S/N [id number]) FINDINGS: AP lumbar spine L1-L4 Total BMD is 0.89 g/mk0D-qppav is -2.5 Most recent prior BMD was 0.81 g/cm2 There has been a 9.8% increase in BMD which is statistically significant. Left Hip Current Total BMD is 0.98 g/ip4E-ptgyd is -0.3 Most recent prior Total BMD was 1.0 g/cm2 There has been a 3.6% decrease in BMD which is statistically significant. Current femoral neck BMD is 0.89 g/hv1I-zhvna is -1.0 Fracture risk assessment (FRAX): 10 year risk for a major osteoporotic fracture is 5.5 % 10 year risk for a hip fracture is 0.3 % The FRAX tool has not been validated in patients currently or previously treated with pharmacotherapy for osteoporosis. In such patients, clinical judgement must be exercised in interpreting FRAX scores as the fracture risk may be overestimated. THIS IS AN ELECTRONICALLY VERIFIED REPORT 07/28/2016 9:14 AM: Corey Medina M.D. Corey Medina M.D. Radiologist AR:janene JOSTIN IMPRESSION: Low bone mass Bone mineral density: Normal (T-score above or = -1.0) Low bone mass (T-score between -1.0 and -2.5) replaces the previously used term osteopenia Osteoporosis (T-score = or below -2.5) Medical evaluation for secondary causes of low bone mineral density may be appropriate. FRAX is a World Health Organization validated fracture risk assessment tool that calculates a person's 10 year probability of a major osteoporosis related fracture and hip fracture. According to the National Osteoporosis Foundation guidelines, postmenopausal women and men age 50 or older with low bone mass and a 10 year probability of a major osteoporosis related fracture = or greater than 20% or a 10 year probability of a hip fracture = or greater than 3% should be considered for treatment. For further information, including treatment recommendations, please refer to the 2013 ISCD Official Positions (http://www.iscd.org) and the NOF's Clinician's Guide to Prevention and Treatment of Osteoporosis (http://www.nof.org/professionals/clinical-guidelines) us Terri Sim MD IMG DEXA ORDERABLES Final Re sult * HM COLONOSCOPY (11/03/2015) us Terri Sim MD PROCEDURE/MINOR SURGICAL ORD ERABLES Final Result * Diag Mammogram (07/09/2015 9:50 AM LENS ASSORTER) Anatomical Region Laterality Modality breast Bilateral Mammography 07/09/2015 8:53 AM LENS ASSORTER Narrative 07/10/2015 12:58 PM LENS ASSORTER - THEE DIAG BILATERAL DIGITAL W CAD BILATERAL DIGITAL DIAGNOSTIC MAMMOGRAM WITH CAD WITH MEDIOLATERAL MEDIOLATERAL OBLIQUE CRANIOCAUDAL: 07/09/2015 The study was acquired using digital technology and interpreted from soft copy. Current study was also evaluated with ICAD version 7.2. CLINICAL: Previous history of breast cancer 2013. No current complaints. Sister with pre-menopausal breast cancer. COMPARISONS: Comparison is made to exams dated: 01/26/2014, 01/26/2014 [facility], 06/04/2012, and 05/25/2012 Mychal Murillo Md. BREAST TISSUE:There are scattered fibroglandular densities in both breasts. FINDINGS: The right breast has post-operative findings. There is an asymmetry in the right breast middle depth medial region seen on the craniocaudal view only. No other significant masses, calcifications, or other findings are seen in either breast. IMPRESSION: BI-RAD 0 ADDITIONAL IMAGING EVALUATION NEEDED The asymmetry in the right breast is indeterminate. Craniocaudal view with spot compression view as well as a possible ultrasound are recommended. An immediate follow-up is recommended. The patient has been or will be contacted. Electronically signed by: Kody cancino/rodrigo:07/09/2015 16:48:34 Nursing Support Worker: Jackie JOHNSON(Inocencio)(Radha), [facility] letter sent: Additional Imaging Reading location: [facility] BI-RADS: 0 Additional Imaging Evaluation Needed Procedure Note Kody Gambino MD - 07/10/2015 - THEE DIAG BILATERAL DIGITAL W CAD BILATERAL DIGITAL DIAGNOSTIC MAMMOGRAM WITH CAD WITH MEDIOLATERAL MEDIOLATERAL OBLIQUE CRANIOCAUDAL: 07/09/2015 The study was acquired using digital technology and interpreted from soft copy. Current study was also evaluated with ICAD version 7.2. CLINICAL: Previous history of breast cancer 2013. No current complaints. Sister with pre-menopausal breast cancer. COMPARISONS: Comparison is made to exams dated: 01/26/2014, 01/26/2014 [facility], 06/04/2012, and 05/25/2012 Mychal Murillo Md. BREAST TISSUE:There are scattered fibroglandular densities in both breasts. FINDINGS: The right breast has post-operative findings. There is an asymmetry in the right breast middle depth medial region seen on the craniocaudal view only. No other significant masses, calcifications, or other findings are seen in either breast. IMPRESSION: BI-RAD 0 ADDITIONAL IMAGING EVALUATION NEEDED The asymmetry in the right breast is indeterminate. Craniocaudal view with spot compression view as well as a possible ultrasound are recommended. An immediate follow-up is recommended. The patient has been or will be contacted. Electronically signed by: Kody cancino/rodrigo:07/09/2015 16:48:34 Nursing Support Worker: Jackie JOHNSON(Inocencio)(Radha), [facility] letter sent: Additional Imaging Reading location: [facility] BI-RADS: 0 Additional Imaging Evaluation Needed us Jacki Barrientos MD IMG MAMMO ORDERABLES F inal Result from Last 3 Months or Most Recently Relevant to Health Maintenance Insurance MEDICARE [facility] Care Teams Loan Workout Officer Relationship Specialty Start Date End Date Provider, Not On File [place] PCP - General 05/26/24 Jacki Barrientos MD Consulting Physician General Surgery 06/17/15 Arash Pollard MD Consulting Physician Oncology 06/18/15 Mychal Álvarez MD Consulting Physician Radiation Oncology 06/18/15 Virgen Cueva Gastroenterology 09/01/16
--- OUTSIDE RECORDS SUMMARY | 2024-09-20 07:07 | XMS_ITS | Referral Summary ---
Author Organization [facility] [address] Address [address] [place] [address] Care Team Providers Care Pump Installation And Servicer Name Role Phone Toma Perea MD Primary Care Provider Allergies Active Allergy Reactions Criticality Noted Date Comments Ciprofloxacin Hives Medium 09/27/2018 Iodinated Contrast Media Shortness of breath High Quinolones Hives Medium 09/27/2018 Sulfa (Sulfonamide Antibiotics) Hives Medium 09/07 Social History Tobacco Use Types Packs/Day Years Used Date Smoking Tobacco: Never Assessed Personal Safety Answer Date Recorded Getting School Help Needed Not on file 10/19 Comments Unknown Sex and Gender Information Value Date Recorded Sex Assigned at Not on file Legal Sex Female 1:36 PM CAB DRIVER Gender Identity Not on file Sexual Orientation Not on file Last Filed Vital Signs Vital Sign Reading Time Taken Comments Blood Pressure 118/70 05/24/2018 9:00 AM CDT Pulse 92 05/24/2018 9:00 AM CDT Temperature - - Respiratory Rate - - Oxygen Saturation 96% 05/24/2018 9:00 AM CDT Inhaled Oxygen Concentration - - Weight 127 kg (280 lb) 09/27/2018 8:07 AM CAB DRIVER Height 167.6 cm (5' 6 ) 09/27/2018 8:07 AM CAB DRIVER Body Mass Index 45.19 09/27/2018 8:07 AM CAB DRIVER Plan of Treatment Not on file Insurance [employer] PPO [place] Care Teams Pump Installation And Servicer Relationship Specialty Start Date End Date Toma Perea MD PCP - General Family Medicine 09/13/18
--- OUTSIDE RECORDS SUMMARY | 2024-09-20 07:07 | XMS_ITS | Clinical Summary ---
Author Organization [facility] Address [facility] [place] [address] Care Team Providers Care Medicaid Nurse Name Role Phone Unavailable Primary Care Provider Unavailabl e Social History Tobacco Use Types Packs/Day Years Used Date Smoking Tobacco: Never Assessed Comments Unknown Sex and Gender Information Value Date Recorded Sex Assigned at Not on file Legal Sex Female 5:44 PM CDT Gender Identity Not on file Sexual Orientation Not on file Plan of Treatment Health Maintenance Due Date Last Done Comments Colorectal Cancer Screening Colonoscopy (10 Years) 1955 Hepatitis C 10/14/1975 DTaP, Tdap and Td Vaccines ( 1 - Tdap) 1976 Mammogram Screening 1997 Zoster Vaccines (1 of 2) 10/14/2007 Dexa Scan (General) 2022 Pneumococcal Vaccine: 65+ Ye ars (1 of 1 - PCV) 2022 COVID-19 Vaccine (2023-2 5 season) 2024 Influenza Adult (#1) 2024 RSV Immunization or 60+ Years (1 - 1-dose 75+ series) 2032 Meningococcal B Vaccine Aged Out No l onger eligible based on patient's age to complete this topic Meningococcal Vaccine Aged Out No raphael nadya eligible based on patient's age to complete this topic RSV Immunizations Under 20 Months Aged Out No longer eligible based on patient's age to complete this topic
--- OUTSIDE RECORDS SUMMARY | 2024-09-20 07:07 | XMS_ITS | Clinical Summary ---
Author Organization [facility] [address] Address [address] [place] [address] Care Team Providers Care Service Center Representative Name Role Phone Toma Perea MD Primary [...] on file Legal Sex Female 1:36 PM [employer]ER [employer] Gender Identity Not on file Sexual Orientation Not on file Last Filed Vital Signs Vital Sign Reading Time Taken Comments Blood Pressure 118/70 05/24/2018 9:00 AM CDT Pulse 92 05/24/2018 9:00 AM CDT Temperature - - Respiratory Rate - - Oxygen Saturation 96% 05/24/2018 9:00 AM CDT Inhaled Oxygen Concentration - - Weight 127 kg (280 lb) 09/27/2018 8:07 AM [employer]ER [employer] M[employer] Height 167.6 cm (5' 6 ) 09/27/2018 8:07 AM [employer]ER [employer] Body Mass Index 45.19 09/27/2018 8:07 AM ROLLER STR[employer]URAL MILL Plan of Treatment Not on file Insurance [employer] [place] Care Teams Service Center Representative Relationship Specialty Start Date End Date Toma Perea MD PCP - General Family Medicine 09/13/18
--- OUTSIDE RECORDS SUMMARY | 2024-09-20 07:07 | XMS_ITS | Patient Health Summary ---
Author Organization [facility] Address [address] [place] [address] Care Team Providers Care Schedule Announcer Name Role Phone DesirCarol Ann Melaniesoo Primary Care Provider [phone] Note from [facility],non-owned Affiliates and Associated Physician Practices is amultiple site organization consisting of ambulatory clinics and hospital sitesin [place], [place], [place] and [place]. This disclosure is being madepursuant to the Care Everywhere program and may not contain all information available regarding this patient. Last updated 18.[facility] Allergies * Ciprofloxacin(Itching) -Low Criticality * Contrast-Iodinated Agents For Ct/Other(Other) -Low Criticality * Quinolones(Skin Reactions) -Medium Criticality * Sulfa Drugs(Itching) -Low Criticality Medications * Be aware that medications may not be up to date on this document. Alwaysverify current medications with the patient. * metFORMIN (GLUCOPHAGE) 500 MG tablet(Started 12/06/2016) * tacrolimus (PROTOPIC) 0.1 % ointment(Started 12/25/2016) 5 refills left * pravastatin (PRAVACHOL) 40 MG tablet(Started 12/06/2016) * Vitamin D3 (CHOLECALCIFEROL) 2000 UNITS capsule(Started 12/25/2016) Take by mouth. * Apremilast (OTEZLA) 30 MG Take by mouth 2 times daily * Ivermectin (SOOLANTRA) 1 % To face prn * senna-docusate (SENOKOT-S) 8.6-50 MG tablet(Started 02/28/2019) Take 1 tablet by mouth once daily * acetaminophen (TYLENOL) 325 MG tablet(Started 02/28/2019) Take 2 tablets by mouth every 6 hours as needed for Pain Maximum allowable Acetaminophen amount = 4Grams (4000 mg) / 24 hours. * ibuprofen (MOTRIN) 600 MG tablet(Started 02/28/2019) Take 1 tablet by mouth every 6 hours as needed for Pain * oxyCODONE (OXY-IR) 5 MG capsule(Started 02/28/2019) Take 1 capsule by mouth every 6 hours as needed for Pain Active Problems No known active problems Social [...] Mass Index 38.41 06/04/2024 9:20 AM CDT Medical Devices Implanted Type Area Compliance And Control Analyst Device Identifier Shelf Expiration Date Model / Serial / Lot Mesh Srg Ventralight St Sepra Echo Implanted:Qty: 1 on 02/28/2019 by Vesna Ba MD at [facility] N/A: Abdomen [employer] 11/01/2019 [id number] / / [id number] Procedures * IMAGING/RADIOLOGY/XRAY RESULTS ORDER(Performed 05/27/2019) * CARDIAC RHYTHM STRIP ORDER(Performed 03/04/2019) * GLUCOSE - POINT OF CARE(Performed 02/28/2019) * ENDOTRACHEAL TUBE NOTE(Performed 02/28/2019) * LAPAROSCOPIC REPAIR VENTRAL HERNIA(Performed 02/28/2019) Performed for Diagnosis unknown * GLUCOSE - POINT OF CARE(Performed 02/28/2019) * CBC W AUTO DIFFERENTIAL(Performed 02/18/2019) * LACTIC ACID BLOOD(Performed 02/18/2019) * PT-INR(Performed 02/18/2019) * COMPREHENSIVE METABOLIC PANEL(Performed 02/18/2019) * CT ABDOMEN PELVIS WO CONTRAST(Performed 09/13/2018) Performed for Umbilical hernia without obstruction and without gangrene * LIPID PROFILE(Performed 01/05/2017) * CBC W AUTO DIFFERENTIAL(Performed 01/05/2017) * COMPREHENSIVE METABOLIC PANEL(Performed 01/05/2017) * LAB HISTORICAL RESULTS-ONBASE(Performed 12/28/2016) * CULTURE AEROBIC(Performed 12/25/2016) Results * IMAGING RADIOLOGY XRAY RESULTS ORDER (05/27/2019) Anatomical Region Laterality Modality Other Carina Al WORKERS COMPENSATION DEFENSE ATTORNEY-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 Scanned Document CARDIAC SERVICES ORD ERABLES * (ABNORMAL) GLUCOSE - POINT OF CARE (02/28/2019 2:52 PM CDT) Only the most recent of2 resultswithin the time period is included. Pathologist [facility] Glucose WB/POC 154(H) 70 - 106 mg/dL 03/04/2019 8:44 AM CDT [facility] Specimen Type Arterial/C apillary 03/04/2019 8:44 AM CDT [facility] Blood BLOOD SPECIMEN / Unknown 02/28/2019 2:52 PM CDT 03/04/2019 8:44 AM CDT Vesna Ba MD LAB - POINT OF CARE ORDERABLES [facility] [address] [place] [address] * (ABNORMAL) CBC W AUTO DIFFERENTIAL (02/18/2019 11:19 AM CDT) Only the most recent of2 resultswithin the time period is included. [facility] WBC 5.3 4.4 - 10.7 x10E9/L 02/18/2019 11:26 AM CDT [facility] WBC Corrected x10E9/L 02/18/2019 11:26 AM CDT [facility] RBC 4.70 3.80 - 5.20 x10E12/L 02/18/2019 11:26 AM CDT [facility] Hemoglobin 13.7 12.0 - 15.6 gm/dL 02/18/2019 11:26 AM [facility] Hematocrit 44.7 35.9 - 45.5 % 02/18/2019 11:26 AM [facility] MCV 95.1 80.7 - 98.3 fl 02/18/2019 11:26 AM [facility] MCH 29.1 26.7 - 34.0 pg 02/18/2019 11:[facility] MCHC 30.6(L) 30.8 - 35.9 gm/dL 02/18/2019 11:26 AM [facility] Platelet Count 268 153 - 416 x10E9/L 02/18/2019 11:26 AM [facility] RDW-CV 13.3 12.1 - 14.9 % 02/18/2019 11:26 AM [facility] MPV 10.0 9.4 - 12.9 fl 02/18/2019 11:26 AM [facility] Neutrophils % 72.5 44.0 - 73.0 % 02/18/2019 11:26 AM [facility] Lymphocytes % 16.9(L) 20.0 - 43.0 % 02/18/2019 11:26 AM [facility] Monocytes % 6.2 5.0 - 13.0 % 02/18/2019 11:26 AM CDT [facility] Eosinophils % 3.4 0.0 - 6.0 % 02/18/2019 11:26 AM CDT [facility] Basophils % 0.8 0.0 - 2.0 % 02/18/2019 11:26 AM CDT [facility] Immature Granulocytes 0.2 0 - 1 % 02/18/2019 11:26 AM CDT [facility] Neutrophil Absolute 3.87 2.01 - 7.14 x10E9/L 02/18/2019 11:26 AM CDT [facility] Lymphocytes Absolute 0.90(L) 1.07 - 3.94 x10E9/L 02/18/2019 11:26 AM CDT [facility] Monocytes Absolute 0.33 0.26 - 1.07 x10E9/L 02/18/2019 11:26 AM CDT [facility] Eosinophils Absolute 0.18 0 - 0.47 x10E9/L 02/18/2019 11:26 AM CDT [facility] Basophils Absolute 0.04 0 - 0.08 x10E9/L 02/18/2019 11:26 AM CDT [facility] Immature Granulocytes Absolute 0.01 0.00 - 0.06 x10E9/L 02/18/2019 11:26 AM CDT [facility] nRBC Auto 0 /100 WBC 02/18/2019 11:26 AM CDT [facility] Blood BLOOD SPECIMEN / Unknown Venipuncture / Unknown 02/18/2019 11:19 AM CDT 02/18/2019 11:21 AM CDT Vesna Ba MD LAB - HEMATOLOGY ORD ERABLES Performing Organization Address [facility] Co de Phone Number [facility] [address] [place] [id number] * PT-INR (02/18/2019 11:18 AM CDT) PT 10.7 9.5 - 11.6 sec 02/18/2019 11:29 AM CDT [facility] INR 1.0 0.9 - 1.1 02/18/2019 11:29 AM CDT [facility] Blood BLOOD SPECIMEN / Unknown Venipuncture / Unknown 02/18/2019 11:18 AM CDT 02/18/2019 11:21 AM CDT Narrative [facility] - 02/18/2019 11:29 AM CDT Conventional Warfarin Anticoagulant Therapy: INR Reference Range: 2.0-3.0 Intensive Warfarin Anticoagulant Therapy: INR Reference Range: 2.5-3.5 Vesna Ba MD LAB - COAGULATION OR DERABLES Performing Organization Address [facility] Co de Phone Number [facility] [address] [place] [address] * (ABNORMAL) COMPREHENSIVE METABOLIC PANEL (02/18/2019 11:18 AM CDT) Only the most recent of2 resultswithin the time period is included. [facility] Glucose 103 74 - 106 mg/dL 02/18/2019 11:39 AM CDT [facility] Sodium 143 136 - 145 mmol/L 02/18/2019 11:39 AM [facility] Potassium 4.4 3.5 - 5.1 mmol/L 02/18/2019 11:39 AM CDT [facility] Chloride 106 98 - 107 mmol/L 02/18/2019 11:39 AM CDT [facility] CO2 30 23 - 31 mmol/L 02/18/2019 11:39 AM CDT [facility] Calcium 9.3 8.4 - 10.2 mg/dL 02/18/2019 11:39 AM [facility] Anion Gap 7(L) 8 - 16 mmol/L 02/18/2019 11:39 AM T [facility] BUN 13 9.8 - 20.1 mg/dL 02/18/2019 11:39 AM [facility] Creatinine 0.75 0.55 - 1.02 mg/dL 02/18/2019 11:39 AM [facility] Alkaline Phosphatase 59 40 - 150 U/L 02/18/2019 11:39 AM CDT [facility] ALT 29 13 - 61 U/L 02/18/2019 11:39 AM T [facility] AST 25 5 - 34 U/L 02/18/2019 11:39 AM [facility] Protein Total 6.8 6.4 - 8.3 gm/dL 02/18/2019 11:39 AM [facility] Albumin 3.8 3.2 - 4.6 gm/dL 02/18/2019 11:39 AM [facility] Bilirubin Total 0.3 0.2 - 1.0 mg/dL 02/18/2019 11:39 AM CDT [facility] eGFR by MDRD >60 >60 mL/min/1.7 3m2 02/18/2019 11:39 AM CDT [facility] eGFR by MDRD >60 >60 mL/min/1.7 3m2 02/18/2019 11:39 AM CDT [facility] Blood BLOOD SPECIMEN / Unknown Venipuncture / Unknown 02/18/2019 11:18 AM CDT 02/18/2019 11:21 AM CDT Narrative [facility] - 02/18/2019 11:39 AM CDT Attention clinician: BUN Reference Range has changed. Vesna Ba MD LAB - CHEMISTRY ORDE CELSO Performing Organization Address [facility] Co de Phone Number [facility] [address] [place] [address] * LACTIC ACID BLOOD (02/18/2019 11:18 AM CDT) Lactic Acid 0.7 0.5 - 2.2 mmol/L 02/18/2019 11:34 AM CDT [facility] Blood BLOOD SPECIMEN / Unknown Venipuncture / Unknown 02/18/2019 11:18 AM CDT 02/18/2019 11:21 AM CDT Tung Dalton MD LAB - CHEMISTRY ORDE DONALDMINNIE Performing Organization Address [facility] de Phone Number [facility] [address] [place] [address] * CT ABDOMEN PELVIS WO CONTRAST (09/13/2018 7:34 AM BRAKE SPECIALIST) Anatomical Region Laterality Modality Abdomen, Pelvis Computed Tomogra phy 09/13/2018 8:13 AM BRAKE SPECIALIST Impressions 09/13/2018 9:06 AM BRAKE SPECIALIST 1. Infraumbilical ventral abdominal hernia containing nonobstructive loop of transverse colon. 2. Mild colonic diverticulosis. 3. Possible cirrhosis. Report dictated by Makayla Mae MD (vice president lending). I, Louis Tellez, have personally reviewed the images and I agree with this report. Reading Radiologist: Louis Tellez MD on 09/13/2018 at 9:06 AM Narrative 09/13/2018 9:06 AM BRAKE SPECIALIST EXAMINATION: CT abdomen and pelvis without contrast HISTORY: Umbilical hernia without obstruction or gangrene TECHNIQUE: CT of the abdomen and pelvis was performed without contrast according to a standard protocol COMPARISON: None available FINDINGS: The lung bases are clear. The heart is normal in size. No pericardial effusion is seen. The liver surface appears nodular. The gallbladder is present without evidence of cholelithiasis. Multiple tiny calcified granulomas are present in the spleen. The pancreas and adrenal glands appear normal. The kidneys are normal in size and configuration. No renal calculi are identified. There is no hydronephrosis. The distal esophagus and stomach appear normal. There is mild colonic diverticulosis. There is a large ventral infraumbilical hernia. The hernia neck measures approximately 3.5 cm and contains a loop of nonobstructed transverse colon. The small bowel and large bowel are normal in caliber without evidence of wall thickening or obstruction. No abdominal lymphadenopathy is seen. There is no free pelvic fluid or intraperitoneal air. The urinary bladder is partially distended. The uterus is absent. No inguinal lymphadenopathy is seen. The osseous structures are intact. No suspicious lytic or blastic lesions are seen. Procedure Note Louis Tellez MD - 09/13/2018 EXAMINATION: CT abdomen and pelvis without contrast HISTORY: Umbilical hernia without obstruction or gangrene TECHNIQUE: CT of the abdomen and pelvis was performed without contrast according to a standard protocol COMPARISON: None available FINDINGS: The lung bases are clear. The heart is normal in size. No pericardial effusion is seen. The liver surface appears nodular. The gallbladder is present without evidence of cholelithiasis. Multiple tiny calcified granulomas are present in the spleen. The pancreas and adrenal glands appear normal. The kidneys are normal in size and configuration. No renal calculi are identified. There is no hydronephrosis. The distal esophagus and stomach appear normal. There is mild colonic diverticulosis. There is a large ventral infraumbilical hernia. The hernia neck measures approximately 3.5 cm and contains a loop of nonobstructed transverse colon. The small bowel and large bowel are normal in caliber without evidence of wall thickening or obstruction. No abdominal lymphadenopathy is seen. There is no free pelvic fluid or intraperitoneal air. The urinary bladder is partially distended. The uterus is absent. No inguinal lymphadenopathy is seen. The osseous structures are intact. No suspicious lytic or blastic lesions are seen. IMPRESSION 1. Infraumbilical ventral abdominal hernia containing nonobstructive loop of transverse colon. 2. Mild colonic diverticulosis. 3. Possible cirrhosis. Report dictated by Makayla Mae MD (vice president lending). I, Louis Tellez, have personally reviewed the images and I agree with this report. Reading Radiologist: Louis Tellez MD on 09/13/2018 at 9:06 AM Vesna Ba MD CT ORDERABLES * (ABNORMAL) LIPID PROFILE (01/05/2017 7:44 AM CDT) Cholesterol Total 150 125 - 200 mg/dL [facility] ([facility]) HDL 42(L) > OR = 46 mg/dL [facility] ([facility]) Triglycerides 114 <150 mg/dL [facility] ([facility]) LDL Calculated 85 <130 mg/dL (calc) [facility] ([facility]) Comment: Desirable range <100 mg/dL for patients with CHD or diabetes and <70 mg/dL for diabetic patients with known heart disease. Chol/HDL Ratio 3.6 < OR = 5.0 (calc) [facility] ([facility]) Non HDL Cholesterol 108 mg/dL (calc) [facility] [[email or web address] ([facility]) Comment: Target for non-HDL cholesterol is 30 mg/dL higher than LDL cholesterol target. REPORT COMMENT: FASTING:YES Test Performed at: [facility] [address] [place] [address] ALTAF URIBE DO,MPH Blood specimen (specimen) BLOOD SPECIMEN / Unknown 01/05/2017 7:44 AM CDT 01/05/2017 7:44 AM CDT Divina Ledbetter MD LAB - CHEMISTRY [facility]) * LAB HISTORICAL RESULTS-ONBASE (12/28/2016) 12/28/2016 Historical Provider [facility] [address] [place] [address], [facility] * (ABNORMAL) CULTURE AEROBIC (12/25/2016) Culture Aerobic SEE NOTE(A) [facility] [[email or web address]] ([facility]) Comment: CULTURE, AEROBIC BACTERIA WITH GRAM STAIN MICRO NUMBER: [id number] TEST STATUS: FINAL SPECIMEN SOURCE: SKIN SPECIMEN QUALITY: ADEQUATE GRAM STAIN: No white blood cells seen Many Mixed bacterial leah RESULT: Heavy growth of Escherichia coli Heavy growth of Staphylococcus aureus COMMENT: Additional organisms of questionable significance were isolated that normally do not warrant identification and susceptibilities. Please contact the laboratory within three days if identification and susceptibilities are clinically indicated. E.coli S.aureus INT INT AMOX/CLAVULANATE S <=2 * AMPICILLIN S <=2 * AMP/SULBACTAM S <=2 * CEFAZOLIN NR <=4 * CEFEPIME S <=1 * CEFTRIAXONE S <=1 * CIPROFLOXACIN S <=0.25 S <=0.5 CLINDAMYCIN * S <=0.25 ERYTHROMYCIN * S 0.5 GENTAMICIN S <=1 S <=0.5 IMIPENEM S <=0.25 * LEVOFLOXACIN S <=0.12 S <=0.12 MOXIFLOXACIN * S <=0.25 OXACILLIN * S <=0.25 1 PIP/TAZOBACTAM S <=4 * TETRACYCLINE * S <=1 TOBRAMYCIN S <=1 * TRIMETHOPRIM/SULFA S <=20 S <=10 VANCOMYCIN * S 1 S=Susceptible I=Intermediate R=Resistant * = Not Tested NR = Not Reported NN = See Therapy Comments THERAPY COMMENTS Note 1: Oxacillin-susceptible staphylococci are susceptible to other penicillinase-stable penicillins (e.g. Methicillin, Nafcillin), beta- lactam/beta-lactamase inhibitor combinations, and cephems with staphylococcal indications, including Cefazolin. REPORT COMMENT: SPECIMEN TYPE->SKIN Test Performed at: [facility] [address] LOUISE HASSAN MD Skin (tissue) specimen (specimen) 12/25/2016 12/26/2016 1:45 AM CDT Narrative [facility] ([facility]) - 12/29/2016 8:00 AM CDT Specimen Type->Skin Divina Ledbetter MD LAB - MICROBIOLOGY O RDERABLES [facility]) Care Teams Schedule Announcer Relationship Specialty Start Date End Date Carol Ann Desir DO PCP - General Student Resident 05/07/24
--- OUTSIDE RECORDS SUMMARY | 2024-09-20 07:07 | XMS_ITS | Encounter Summary ---
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 Historical Provider Final Res ult * SCAN - LABS (09/06/2017 12:00 AM ELECTRICAL PROSPECTING OBSERVER) Narrative 09/06/2017 12:00 AM ELECTRICAL PROSPECTING OBSERVER Ordered by an unspecified provider. Historical Provider Final Res ult documented in this encounter Visit Diagnoses Not on filedocumented in this encounter Care Teams Tube And Manifold Builder Relationship Specialty Start Date End Date Toma Perea MD PCP - General Family Medicine 09/13/18 documented as of this encounter
--- OUTSIDE RECORDS SUMMARY | 2024-09-20 07:07 | XMS_ITS | Clinical Summary ---
Author Organization [facility] Address [address] [place] [address] Phone Care Team Providers Care Drop Tester Name Role Phone Terri Sim MD Primary Care Provider Allergies Active Allergy Reactions Criticality Noted Date Comments Ciprofloxacin Shortness of Breath/Wheezing High 10/18/2015 Iodinated Contrast Media Shortness of Breath/Wheezing High 10/18/2015 Quinolones Shortness of Breath/Wheezing High 10/18/2015 Sulfa (Sulfonamide Antibiotics) Shortness of Breath/Wheezing High 10/18/2015 Medications metFORMIN (GLUCOPHAGE) 500 mg tabletIndicatio ns:Screening for colorectal cancer Take 500 mg by mouth daily with breakfast. Active pravastatin (PRAVACHOL) 40 mg tabletIndicatio ns:Screening for colorectal cancer Take 40 mg by mouth Daily LATE. Active naproxen (NAPROSYN) 500 mg tabletIndicatio ns:Screening for colorectal cancer Take 500 mg by mouth 2 times daily with meals. Active traMADol (ULTRAM) 50 mg tabletIndicatio ns:KISER (nonalcoholic steatohepatitis ) Take 50 mg by mouth 1 time daily as needed for Pain. Active Cholecalciferol , Vitamin D3, 2,000 unit CapsuleIndicati ons:NAFLD (nonalcoholic fatty liver disease) Take by mouth. Activ e clobetasol (TEMOVATE) 0.05 % CreamIndication s:NAFLD (nonalcoholic fatty liver disease) Apply to affected area 2 times daily. Active calcipotriene (DOVONEX) 0.005 % CreamIndication s:NAFLD (nonalcoholic fatty liver disease) Apply to affected area 2 times daily. Active hydrocortisone (HYTONE) 2.5 % Ointment Apply to psoriasis patches in armpits, under breasts, groin, buttocks twice daily along with ketoconazole cream. 454 Gram 6 Active efinaconazole (JUBLIA) 10 % Solution With Applicator Apply 1 Drop to affected area daily. 1 Bottle 3 6 Active tavaborole (KERYDIN) 5 % Solution With Applicator Apply 1 Drop to affected area daily. 1 Bottle 3 6 Active Active Problems Problem Noted Date Diagnosed Date Morbid obesity due to excess calories 02/24/2016 Incarcerated ventral hernia 02/24/2016 Type 2 diabetes mellitus without complication Malignant neoplasm of right female breast 2015 Dyslipidemia 02/24/2016 NAFLD (nonalcoholic fatty liver disease) 016 Hernia, ventral 10/18/2015 Family History Medical History Relation Name Comments Esophageal Cancer Father Hypertension Mother Colon Cancer Neg Hx Relation Name Status Comments Father Mother Social History Tobacco Use Types Packs/Day Years Used Date Smoking Tobacco: Former Comments:quit 15 years ago Alcohol Use Standard Drinks/Week Comments No 0 (1 standard drink = 0.6 oz pur e alcohol) Comments Unknown Sex and Gender Information Value Date Recorded Sex Assigned at Not on file Legal Sex Female 3:04 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 Gender Identity Not on file Sexual Orientation Not on file Last Filed Vital Signs Vital Sign Reading Time Taken Comments Blood Pressure 132/84 07/10/2016 11:03 AM BORING MILL SET UP OPERATOR VERTICAL Pulse 76 07/10/2016 11:03 AM BORING MILL SET UP OPERATOR VERTICAL Temperature 35.9 C (96.6 F) 11/03/2015 12:16 PM CDT Respiratory Rate 16 11/03/2015 12:36 PM CDT Oxygen Saturation 98% 11/03/2015 12:36 PM CDT Inhaled Oxygen Concentration - - Weight 136.5 kg (301 lb) 07/10/2016 11:03 AM BORING MILL SET UP OPERATOR VERTICAL Height 162.6 cm (5' 4 ) 07/10/2016 11:03 AM BORING MILL SET UP OPERATOR VERTICAL Body Mass Index 51.67 07/10/2016 11:03 AM BORING MILL SET UP OPERATOR VERTICAL Plan of Treatment Health Maintenance Due Date Last Done Comments DIABETES ANNUAL FOOT EXAM 10/14/1975 DIABETES ANNUAL RETINAL EXAM 10/14/1975 DIABETES HBA1C Q 6 MONTHS 10/14/1975 DIABETES MICROALBUMIN ANNUAL SCREEN 10/14/1975 LDL CHOLESTEROL ANNUAL 10/14/1975 DTAP/TDAP/TD VACCINES (1 - Tdap) 1976 PNEUMOCOCCAL VACCINE 65+ YEA RS (1 of 2 - PCV) 1976 BREAST CANCER SCREENING 1997 FIT-DNA Q 3 years 2002 FIT/FOBT Q 1 year 2002 Flex Sig/CT Colonography Q 5 years 2002 ZOSTER VACCINE (1 of 2) 10/14/2007 RSV VACCINE (60+ or ) (1 - Risk 60-74 years 1-dose series) 2017 COLORECTAL SCREENING 11/02/2017 11/03/2015, 11/03/19 16 Colorectal Cancer Screening 11/02/2017 OSTEOPOROSIS SCREENING 2022 INFLUENZA VACCINE (#1) 2024 Advance Directives For more information, please contact: [phone] * Full Code (Latest Code Status on File) Date Activated Date Inactivated Comments 11/03/2015 10:56 AM 11/03/2015 2:47 PM Care Teams Drop Tester Relationship Specialty Start Date End Date Terri Sim MD #[address] [address] PCP - General Family Practice 10/05/15
--- OUTSIDE RECORDS SUMMARY | 2024-09-20 07:07 | XMS_ITS | Encounter Summary ---
Author Organization [facility] Address [address] [place] [address] Care Team Providers Care Network Specialist Name Role Phone Toma Perea MD Primary Care Provider Encounter Details Date Type Department Care Team (Late st Contact Info) Description 04/18/2014 Orders Only [facility] Health Information Management [address] [place] [address] Scanning, Provider Social History Tobacco Use Types Packs/Day Years Used Date Smoking Tobacco: Never Assessed Comments Unknown Sex and Gender Information Value Date Recorded Sex Assigned at Not on file Legal Sex Female 1:36 PM CONSULTING PSYCHIATRIST Gender Identity Not on file Sexual Orientation Not on file documented as of this encounter Plan of Treatment Not on file documented as of this encounter Procedures Procedure Name Priority Date/Time Associated Diagnosis Comments SCAN - RADIOLOGY/IMAGING 04/18/2014 documented in this encounter Results * SCAN - RADIOLOGY/IMAGING (04/18/2014) Anatomical Region Laterality Modality Other us Provider Scanning Final Result documented in this encounter Visit Diagnoses Not on filedocumented in this encounter Care Teams Network Specialist Relationship Specialty Start Date End Date Toma Perea MD PCP - General Family Medicine 09/13/18 documented as of this encounter
--- OUTSIDE RECORDS SUMMARY | 2024-09-20 07:07 | XMS_ITS | Continuity of Care Document ---
Author Organization [facility] Address [address] [place] [address] Phone Care Team Providers Care Universal Branch Consultant Name Role Phone Nuria Dorantes MD Unavailable [...] Diagnoses Date Provider Providers Copied on Encounter [employer], [address], [place], [place], [id number], tel:[phone] Bernie No Information Dorantesmable Sonih. [address] [place], [place], [id number]. tel:[phone] [employer], [address], [place], [place], [address], tel:[phone] [facility] LONG-TERM USE MEDS NECABNORMAL WEIGHT GAINMIXED HYPERLIPIDEMIA Dorantes Nuria. [address] [place], [place], [id number]. tel:[phone] [employer] [employer], [address], [place], [place], [address], [place] tel:[phone] [facility] URINARY FREQUENCYOTHER PSORIASIS DorantesDoutíssimah. [address] [place], [place], [id number]. tel:[phone] [employer], [address], [place], [place], [address], [place] tel:[phone] [facility] JOINT PAIN-SHLDER DorantesLinqiah. [address] [place], [place], [id number]. tel:[phone] [facility] [employer], [address], [place], [place], [address], tel:[phone] [facility] URIN TRACT INFECTION NOS DorantesLinqiah. [address] [place], [place], [id number]. tel:[phone] [facility] [employer], [address], [place], [place], [address], [place] tel:[phone] Bernie No Information Jayna Sonih. [address] [place], [place], [id number]. tel:[phone] [facility] [employer], [address], [place], [place], [address], [place] tel:[phone] [facility] CHR AIRWAY OBSTRUCT NECPRSNL HST COLONIC POLYPSSCREEN MAL NEOP-RECTUM Jayna Sonih. [address] [place], [place], [id number]. tel:[phone] [facility] [employer] [facility], [address], [place], [place], [address], [place] tel:[phone] [facility] ABN SERUM ENZY LEVEL NEC Jayna Sonih. [address] [place], [place], [id number]. tel:[phone] [facility] [employer], [address], [place], [place], [address], [place] tel:[phone] [facility] OTHER ATOPIC DERMATITIS Jayna Sonih. [address] [place], [place], [address]. tel:[phone] [facility] [employer], [address], [place], [place], [address], [place] tel:[phone] [facility] ROUTINE MEDICAL EXAM Jayna Sonih. [address] [place], [place], [address]. tel:[phone] [facility] [employer] [facility], [address], [place], [place], [address], [place] tel:[phone] [facility] ESOPHAGEAL REFLUX Jayna Sonih. [address] [place], [place], [id number]. tel:[phone] Family History Family Member Type Diagnosis Age At Onset No Information Payers Payer name Insurance type Covered republican ID Authoriza tion(s) No Information Social History [...]
--- OUTSIDE RECORDS SUMMARY | 2024-09-20 07:07 | XMS_ITS | Encounter Summary ---
Author Organization [facility] Address [address] [place] [address] Care Team Providers Care Diamond Picker Name Role Phone Toma Perea MD Primary Care Provider Encounter Details Date Type Department Care Team (Late st Contact Info) Description 01/26/2014 Orders Only [facility] Health Information Management [address] [place] [address] Scanning, Provider Social History Tobacco Use Types Packs/Day Years Used Date Smoking Tobacco: Never Assessed Comments Unknown Sex and Gender Information Value Date Recorded Sex Assigned at Not on file Legal Sex Female 1:36 PM 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 Gender Identity Not on file Sexual Orientation Not on file documented as of this encounter Plan of Treatment Not on file documented as of this encounter Procedures Procedure Name Priority Date/Time Associated Diagnosis Comments SCAN - RADIOLOGY/IMAGING 01/26/2014 documented in this encounter Results * SCAN - RADIOLOGY/IMAGING (01/26/2014) Anatomical Region Laterality Modality Other us Provider Scanning Final Result documented in this encounter Visit Diagnoses Not on filedocumented in this encounter Care Teams Diamond Picker Relationship Specialty Start Date End Date Toma Perea MD PCP - General Family Medicine 09/13/18 documented as of this encounter
[2024-09-20 08:13] LABS: Alanine Aminotransferase 31 U/L (6-35); Albumin Level 3.9 g/dL (3.5-5.1); Alkaline Phosphatase 41 U/L (38-126); Anion Gap 10 mmol/L (4-12); Aspartate Amino Transferase 27 U/L (14-36); Bilirubin,Total 0.7 mg/dL (0.2-1.3); Blood Urea Nitrogen 9 mg/dL (7-17); Calcium 9.5 mg/dL (8.4-10.2); Carbon Dioxide 25 mmol/L (22-30); Chloride 107 mmol/L (98-107); Cholesterol 122 mg/dL (0-200); Estimated Glomerular Filt Rate > 60; Glucose 89 mg/dL (65-110); HDL Direct 43 mg/dL; Potassium 3.7 mmol/L (3.4-5.0); Sodium 142 mmol/L (137-145); Triglycerides 104 mg/dL (<150)
[2024-09-20 08:24] LABS: LDL Cholesterol Direct 61 mg/dL
== END 2024-09-20 07:05 | disposition home or self-care (01) ==
PROVIDERS: PCP Family Medicine; Visit Provider Family Medicine
DX: E78.2 Mixed hyperlipidemia (principal); E11.59 Type 2 diabetes mellitus with other circulatory complications; I10 Essential (primary) hypertension
CPT/HCPCS: 36415; 80053; 80061

== ENCOUNTER 2025-03-30 11:05 | Outpatient (CLI) | payer MEDICARE, SELFPAY ==
--- NOTE | ~2025-03-30 | CT_ITS ---
EXAMINATION: CT abdomen pelvis wo con DATE: 03/30/2025 11:25 INDICATION: Localized swelling. Mass. TECHNIQUE: Computed tomography (CT) of the abdomen and pelvis was performed without intravenous contrast. The dose-length product was 1389.31 mGy-cm. Automated exposure control and iterative reconstruction technique were employed. COMPARISON: CT dated 05/27/2019 FINDINGS: Lung bases unremarkable. Heart size normal. No significant pleural or pericardial effusion. There are changes of ventral abdominal wall hernia repair. There are calcified granulomas of the spleen. The liver, pancreas, adrenal glands and kidneys are unremarkable. There is atherosclerosis of the aorta without evidence for aneurysm. Nonobstructive bowel gas pattern. Colonic diverticulosis without evidence for diverticulitis. No free air or free fluid. Within the anterior abdominal wall fat there is a circumscribed mass measuring 7.8 x 7.3 x 5.9 cm with peripheral eggshell calcification with mean density measurement of 12 Hounsfield units. No evidence for bowel herniation. Mild lumbar spondylosis. IMPRESSION: 1. Large low density mass with peripheral calcification in the anterior abdominal wall adjacent to previous site of ventral hernia repair. If asymptomatic this most likely represents postsurgical chronic seroma/hematoma with calcification. Neoplasm is unlikely. Reviewed, dictated and finalized at location O. IMPRESSION: 1. Large low density mass with peripheral calcification in the anterior abdomin al wall adjacent to previous site of ventral hernia repair. If asymptomatic thi s most likely represents postsurgical chronic seroma/hematoma with calcificatio n. Neoplasm is unlikely.
--- OUTSIDE RECORDS SUMMARY | 2025-03-30 11:50 | XMS_ITS | Clinical Summary ---
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 Gender Identity Not on file Sexual Orientation Not on file Last Filed Vital Signs Vital Sign Reading Time Taken Comments Blood Pressure 118/70 05/24/2018 9:00 AM CDT Pulse 92 05/24/2018 9:00 AM CDT Temperature - - Respiratory Rate - - Oxygen Saturation 96% 05/24/2018 9:00 AM CDT Inhaled Oxygen Concentration - - Weight 127 kg (280 lb) 09/27/2018 8:07 AM RECREATION PROGRAM SPECIALIST Height 167.6 cm (5' 6) 09/27/2018 8:07 AM RECREATION PROGRAM SPECIALIST Body Mass Index 45.19 09/27/2018 8:07 AM RECREATION PROGRAM SPECIALIST Plan of Treatment Not on file Insurance [employer] [place] Care Teams Mechanical Designer Relationship Specialty Start Date End Date Toma Perea MD PCP - General Family Medicine 09/13/18
--- OUTSIDE RECORDS SUMMARY | 2025-03-30 11:50 | XMS_ITS | Encounter Summary ---
Author Organization [facility] Address [address] [place] [address] Care Team Providers Care Cuff Setter Overlock Name Role Phone Toma Perea MD Primary Care Provider Encounter Details Date Type Department Care Team (Late st Contact Info) Description 04/18/2014 Orders Only [facility] Health Information Management [address] [place] [address] Scanning, Provider Social History Tobacco Use Types Packs/Day Years Used Date Smoking Tobacco: Never Assessed Comments Unknown Sex and Gender Information Value Date Recorded Sex Assigned at Not on file Legal Sex Female 1:36 PM METHOD CONSULTANT Gender Identity Not on file Sexual Orientation [...] on filedocumented in this encounter Care Teams Cuff Setter Overlock Relationship Specialty Start Date End Date Toma Perea MD PCP - General Family Medicine 09/13/18 documented as of this encounter
--- OUTSIDE RECORDS SUMMARY | 2025-03-30 11:50 | XMS_ITS | Clinical Summary ---
Author Organization [facility] Address [address] [place] [place] [address] Care Team Providers Care Bank Messenger Name Role Phone Carol Ann Desir Primary Care Provider Source Comments [facility],non-owned Affiliates and Associated Physician Practices is amultiple site organization consisting of ambulatory clinics and hospital sitesin [place], [place], [place] and [place]. This disclosure is being madepursuant to the Care Everywhere program and may not contain all information available regarding this patient. Last updated 18.[facility] Allergies Active Allergy Reactions Criticality Noted Date Comments Ciprofloxacin Itching Low Contrast-Iodinated Agents For Ct/Other Other Low 06/18/2015 Trouble breathing Quinolones Skin Reactions Medium Sulfa Drugs Itching Low 06/18/2015 Medications * Be aware that medications may not be up to date on this document. Alwaysverify current medications with the patient. metFORMIN (GLUCOPHAGE) 500 MG tablet 7 Active tacrolimus (PROTOPIC) 0.1 % ointment 100 g 5 7 Active pravastatin (PRAVACHOL) 40 MG tablet 7 Active Vitamin D3 (CHOLECALCIFER OL) 2000 UNITS capsule Take by mouth. 7 Active Apremilast (OTEZLA) 30 MG Take by mouth 2 times daily Active Ivermectin (SOOLANTRA) 1 % To face prn Active senna-docusate (SENOKOT-S) 8.6-50 MG tablet Take 1 tablet by mouth once daily 30 tablet 9 Active Additional Information Patient not taking.Reported on 09/24/2019 acetaminophen (TYLENOL) 325 MG tablet Take 2 tablets by mouth every 6 hours as needed for Pain Maximum allowable Acetaminophen amount = 4 Grams (4000 mg) / 24 hours. 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 Not on file Not on file Last Filed Vital Signs [...] 9:20 AM CDT Height 167.6 cm (5' 6) 06/04/2024 9:20 AM CDT Body Mass Index 38.41 06/04/2024 9:20 AM CDT Plan of Treatment Health Maintenance Due Date Last Done Comments PARADISE (AGES 45-75) - COLON CA SCREENING 1955 [...] 11/2014, 02/24/2014, Additional history exists COVID-19 VACCINE ( - 2023- season) 2024 SCREENING FOR DIABETES 05/07/2024 9, 02/28/2019, 02/18/2019, Additional history exists DEPRESSION SCREENING 08/06/2024 MEDICARE AWV CALENDAR YEAR 2024 INFLUENZA VACCINE (#1) 2025 Respiratory Syncytial Virus (RSV) Vaccine Pt: or [...] complete this topic MENINGOCOCCAL (Group B) VACCINE SHARED DECISION-MAKING Aged Out No longer eligible based on patient's age to complete this topic MENINGOCOCCAL GROUPS A/C/Y/W VACCINE Aged Out No longer eligible based on patient's age to complete this topic Medical Devices Implanted Type Area Vibratory Pile Driver Device Identifier Shelf Expiration Date Model / Serial / Lot Mesh Srg Ventralight St Sepra Echo Implanted:Qty: 1 on 02/28/2019 by Vesna Ba MD at [facility] N/A: Abdomen [employer] 11/01/2019 [id number] / / [id number] Procedures Procedure Name Priority Date/Time Associated Diagnosis Comments GLUCOSE - POINT OF CARE Routine 02/28/2019 11:43 AM CDT from Last 3 Months or Most Recently Relevant to Health Maintenance Results * (ABNORMAL) GLUCOSE - POINT OF CARE (02/28/2019 11:43 AM CDT) Glucose WB/POC 111(H) 70 - 106 mg/dL 02/28/2019 11:55 AM CDT [facility] Specimen Type Venous 02/28/2019 11:55 AM CDT [facility] Blood BLOOD SPECIMEN / Unknown 02/28/2019 11:43 AM CDT 02/28/2019 11:55 AM CDT Vesna Ba MD LAB - POINT OF CARE ORDERABLE S Final Result Performing Organization Address City/State/[facility] Co de Phone Number [facility] [address] [place] [address] from Last 3 Months or Most Recently Relevant to Health Maintenance [place] [address] [place] [address] [facility] Address: [facility] [address] [place] [address] [facility] MANAGED MEDICARE ADV Care Teams Bank Messenger Relationship Specialty Start Date End Date Carol Ann Desir DO PCP - General Student Resident 05/07/24
--- OUTSIDE RECORDS SUMMARY | 2025-03-30 11:50 | XMS_ITS | Encounter Summary ---
Author Organization [facility] Address [address] [place] [address] Care Team Providers Care Travel Sales Consultant Name Role Phone Toma Perea MD Primary Care Provider Encounter Details Date Type Department Care Team (Late st Contact Info) Description 01/26/2014 Orders Only [facility] Health Information Management [address] [place] [address] Scanning, Provider Social History Tobacco Use Types Packs/Day Years Used Date Smoking Tobacco: Never Assessed Comments Unknown Sex and Gender Information Value Date Recorded Sex Assigned at Not on file Legal Sex Female 1:36 PM [employer] 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
--- OUTSIDE RECORDS SUMMARY | 2025-03-30 11:50 | XMS_ITS | Encounter Summary ---
Author Organization [facility] Care Team Providers Care Foster Care Case Manager Name Role Phone Toma Perea MD Primary Care Provider Encounter Details Date Type Department Care Team (Latest Contact Info) Description 09/06/2017 Orders Only [facility] ProviderRuchi MD [address] [place], [place] [id number] Social History Tobacco Use Types Packs/Day Years Used Date Smoking Tobacco: Never Assessed Comments Unknown Sex and Gender Information Value Date Recorded Sex Assigned at Not on file Legal Sex Female 1:36 PM WEB DEVELOPER Gender Identity Not on file Sexual Orientation Not on file documented as of this encounter Plan of Treatment Not on file documented as of this encounter Procedures Procedure Name Priority Date/Time Associated Diagnosis Comments SCAN - LABS 09/07/2017 12:00 AM WEB DEVELOPER SCAN - LABS 09/06/2017 12:00 AM WEB DEVELOPER documented in this encounter Results * SCAN - LABS (09/07/2017 12:00 AM WEB DEVELOPER) Narrative 09/07/2017 12:00 AM WEB DEVELOPER Ordered by an unspecified provider. Historical Provider Final Res ult * SCAN - LABS (09/06/2017 12:00 AM WEB DEVELOPER) Narrative 09/06/2017 12:00 AM WEB DEVELOPER Ordered by an unspecified provider. Historical Provider Final Res ult documented in this encounter Visit Diagnoses Not on filedocumented in this encounter Care Teams Foster Care Case Manager Relationship Specialty Start Date End Date Toma Perea MD PCP - General Family Medicine 09/13/18 documented as of this encounter
--- OUTSIDE RECORDS SUMMARY | 2025-03-30 11:50 | XMS_ITS | Clinical Summary ---
Author Organization [facility] Address [address] [place] [address] Phone Care Team Providers Care Congressional Representative Name Role Phone Terri Sim MD Primary Care Provider [phone] Allergies Active Allergy Reactions Criticality Noted Date [...] on file Legal Sex Female 3:04 PM COLOR MATCHER Gender Identity Not on file Sexual Orientation Not on file Last Filed Vital Signs Vital Sign Reading Time Taken Comments Blood Pressure 132/84 07/10/2016 11:03 AM COLOR MATCHER Pulse 76 07/10/2016 11:03 AM COLOR MATCHER Temperature 35.9 C (96.6 F) 11/03/2015 12:16 PM CDT Respiratory Rate 16 11/03/2015 12:36 PM CDT Oxygen Saturation 98% 11/03/2015 12:36 PM CDT Inhaled Oxygen Concentration - - Weight 136.5 kg (301 lb) 07/10/2016 11:03 AM COLOR MATCHER Height 162.6 cm (5' 4) 07/10/2016 11:03 AM COLOR MATCHER Body Mass Index 51.67 07/10/2016 11:03 AM COLOR MATCHER Plan of Treatment Health Maintenance Due Date Last Done Comments DIABETES ANNUAL FOOT EXAM 10/14/1975 DIABETES ANNUAL RETINAL EXAM 10/14/1975 DIABETES HBA1C Q 6 MONTHS 10/14/1975 DIABETES MICROALBUMIN ANNUAL SCREEN 10/14/1975 LDL CHOLESTEROL ANNUAL 10/14/1975 DTAP/TDAP/TD VACCINES (1 - Tdap) 1976 PNEUMOCOCCAL VACCINE 50+ YEA RS (1 of 2 - PCV) [...] 11/02/2017 OSTEOPOROSIS SCREENING 2022 INFLUENZA VACCINE (#1) 2025 Advance Directives For more information, please contact: [phone] * Full Code (Latest Code Status on File) Date Activated Date Inactivated Comments 11/03/2015 10:56 AM 11/03/2015 2:47 PM Care Teams Congressional Representative Relationship Specialty Start Date End Date Terri Sim MD PCP - General Family Practice 10/05/15
--- OUTSIDE RECORDS SUMMARY | 2025-03-30 11:50 | XMS_ITS | Clinical Summary ---
Author Organization [facility] Address [address] [place] [address] Phone Care Team Providers Care Radio Director Name Role Phone Jacki Barrientos MD Unavailable [phone] Arash Pollard MD Unavailable [phone] Mychal Álvarez MD Unavailable [phone] Virgen Cueva Unavailable Unavailable Provider, Not On [...] Diagnosed Date Resolved Date Osteoporosis 10/22/2015 09/01/2016 Immunizations Immunization Administration Dates Next Due PUR [...] Comments Blood Pressure 120/70 06/30/2024 10:44 AM ENTERPRISE ARCHITECT Pulse 75 06/30/2024 8:34 AM ENTERPRISE ARCHITECT Temperature 37.1 C (98.8 F) 06/30/2024 10:44 AM ENTERPRISE ARCHITECT Respiratory Rate 16 06/30/2024 10:44 AM ENTERPRISE ARCHITECT Oxygen Saturation 97% 06/30/2024 10:44 AM ENTERPRISE ARCHITECT Inhaled Oxygen Concentration - - Weight 108 kg (238 lb) 06/18/2024 1:53 PM ENTERPRISE ARCHITECT Height 167.6 cm (5' 6) 06/18/2024 1:53 PM ENTERPRISE ARCHITECT Body Mass Index 38.41 06/18/2024 1:53 PM ENTERPRISE ARCHITECT Plan of Treatment Health Maintenance Due Date Last Done Comments Hepatitis C Virus (HCV) Screening 1955 Pneumococcal Immunization (5 0+ years) (1 of 2 - PCV) 1976 Zoster Immunization (1 of 2) 1976 Cologuard 2002 Immunochemical Fecal Occult Blood 2002 Mammogram 07/09/2016 07/09/2015, 01/26/2014 DEXA Bone Density 07/28/2018 07/28/2016 SARS-COV-2 Immunization ( season) 2024 07/23/2021, 11/12/2020, 10/20/2020 Influenza Immunization (#1) 2025 Colonoscopy 11/02/2025 11/03/2015 Colorectal Cancer Screening 11/02/2025 Td Immunization Every 10 Yea rs (Adults With 1 Tdap) 09/06/2026 09/06/2016 Respiratory Syncytial Virus (RSV) Immunization (Adult) (1 - 1-dose 75+ series) 2032 Hepatitis B Immunization Aged Out No longer eligible based on patient's age to complete this topic Human Papillomavirus (HPV) Immunization Aged Out No longer eligible b ased on patient's age to complete this topic Meningococcal Immunization (ACWY) Aged Out No longer eligible b ased on patient's age to complete this topic Rotavirus Immunization Aged Out No lo nger eligible based on patient's age to complete this topic Medical Devices Implanted Type Area Manager Transmission Device Identifier Shelf Expiration Date Model / Serial / Lot Technis 1-Piece Iol With Simplicity Delivery Sysetm Implanted:Qty: 1 on 05/26/2024 by Dina Edward MD PhD at [facility] 06/14/2026 [id number] / [id number] / [id number] Right Lens Implanted:Qty: 1 on 06/30/2024 by Dina Edward MD PhD at [facility] Right: Eye [employer] 07/07/2026 [id number] / [id number] / [id number] Procedures Procedure Name Priority Date/Time Associated Diagnosis Comments [facility] BONE DENSITOMETRY AXIAL SKELETON Routine 07/28/2016 8:27 AM ENTERPRISE ARCHITECT Osteoporosis HM COLONOSCOPY Routine 11/03/2015 THEE DIAG BILATERAL DIGITAL W CAD Routine 07/09/2015 9:50 AM ENTERPRISE ARCHITECT Malignant neoplasm of right female breast, unspecified site of breast from Last 3 Months or Most Recently Relevant to Health Maintenance Results * [facility] BONE DENSITOMETRY AXIAL SKELETON (07/28/2016 8:27 AM ENTERPRISE ARCHITECT) Anatomical Region Laterality Modality BODY N/A Other 07/28/2016 9:14 AM ENTERPRISE ARCHITECT Impressions 07/28/2016 9:18 AM ENTERPRISE ARCHITECT IMPRESSION: Low bone mass Bone mineral density: [...] of Osteoporosis (http://www.nof.org/professionals/clinical-guidelines) Narrative 07/28/2016 9:18 AM ENTERPRISE ARCHITECT EXAMINATION: DXA Bone Density HISTORY: 60 year old female with given history of screening. 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 Left Hip Current Total BMD is 0.98 g/dw4L-gkmgn is -0.3 Most recent prior Total BMD was 1.0 g/cm2 There has been a 3.6% decrease in BMD which is statistically significant. Current femoral neck BMD is 0.89 g/fl2B-igsin is -1.0 Fracture risk assessment (FRAX): 10 [...] 300 pounds RISK FACTORS: None COMPARISON(S): 04/18/2014 PRE K TEACHER/MODEL: [employer] (S/N [id number]) FINDINGS: AP lumbar spine L1-L4 Total BMD is 0.89 g/zv5U-daxdj is -2.5 Most recent prior BMD was 0.81 g/cm2 There has been a 9.8% increase in BMD which is statistically significant. Left Hip Current Total BMD is 0.98 g/im4F-aukqg is -0.3 Most recent prior Total BMD was 1.0 g/cm2 There has been a 3.6% decrease in BMD which is statistically significant. Current femoral neck BMD is 0.89 g/rx9Y-dexio is -1.0 Fracture risk assessment (FRAX): 10 [...] Result * Diag Mammogram (07/09/2015 9:50 AM ENTERPRISE ARCHITECT) Anatomical Region Laterality Modality breast Bilateral Mammography 07/09/2015 8:53 AM ENTERPRISE ARCHITECT Narrative 07/10/2015 12:58 PM ENTERPRISE ARCHITECT - THEE DIAG BILATERAL DIGITAL W CAD [...] is made to exams dated: 01/26/2014, 01/26/2014 [facility], 06/04/2012, and 05/25/2012 Mychal Murillo Md. BREAST [...] contacted. Electronically signed by: Kody cancino/rodrigo:07/09/2015 16:48:34 In Service Coordinator: Jackie JOHNSON(Inocencio)(Radha), [facility] letter sent: Additional Imaging Reading location: [facility] BI-RADS: 0 Additional Imaging Evaluation Needed Procedure [...] is made to exams dated: 01/26/2014, 01/26/2014 [facility], 06/04/2012, and 05/25/2012 Mychal Murillo Md. BREAST [...] will be contacted. Electronically signed by: Kody Gambino M.D. bs/rodrigo:07/09/2015 16:48:34 In Service Coordinator: Jackie JOHNSON(Inocencio)(M), [facility] letter sent: Additional Imaging Reading location: [facility] BI-RADS: 0 Additional Imaging Evaluation Needed Jacki Barrientos MD IMG MAMMO ORDERABLES F inal Result from Last 3 Months or Most Recently Relevant to Health Maintenance Insurance MEDICARE C [facility] Care Teams Radio Director Relationship Specialty Start Date End Date Provider, Not On File MD PCP - General 05/26/24 Jacki Barrientos MD Consulting Physician General Surgery 06/17/15 Arash Pollard MD Consulting Physician Oncology 06/18/15 Mychal Álvarez MD Consulting Physician Radiation Oncology 06/18/15 Virgen Cueva Gastroenterology 09/01/16
== END 2025-03-30 11:06 | disposition home or self-care (01) ==
PROVIDERS: PCP Family Medicine; Visit Provider Family Medicine
DX: R19.09 Other intra-abdominal and pelvic swelling, mass and lump (principal)
CPT/HCPCS: 74176

== ENCOUNTER 2025-05-06 11:22 | Outpatient (CLI) | payer MEDICARE, SELFPAY ==
--- OUTSIDE RECORDS SUMMARY | 2011-04-10 19:00 | XMS_ITS | Continuity of Care Document ---
Author Organization [facility] Address [address] [place] [address] Phone Care Team Providers Care Research Subject Name Role Phone Nuria Dorantes MD Unavailable Unavailabl e Allergies, Adverse Reactions, Alerts Substance Reaction Status Criticality fenofibrate Skin Active No Information Sulfa (Sulfonamide Antibiotics) Other Active No Information ciprofloxacin Other Active No Information CIPROFLOXACIN HCL Other Active No Informa tion Medications Medication Instructions Dosage Effective Dates (start - stop) Status Comments WELCHOL 625MG TABS 2 BID - Active OMEGA-3 1000MG CAPS 3 QD-daily - Activ e MULTIVITAMIN TABS 1 QD-daily - Active CLINDAMYCIN PHOSPHATE 1% ML 1 BID - Active CLOBETASOL PROPIONATE 0.05% ML 1 DIRECTE - Active PROTOPIC 0.1% APPLICS 1 DIRECTE - Active BENZOYL PEROXIDE 5% APPLICS 1 QHS - Active LIPITOR 40 MG TABLET 1 QPM 2007 - No Longer Active LIPITOR 20MG TABS 1 DAILY No Longer Active TRICOR 145MG TABS 1 QD-daily No Longer Active SARNA 0.5%-0.5% APPLICS 1 DIRECTE - No Longer Active derm ZETIA 10MG TABS 1 DAILY - No Longer Active CLOBETASOL PROPIONATE 0.05% AP 1 BID - No Longer Active body- derm PROTOPIC 0.1% APPLICS 1 BID - No Longer Active perineum- derm MOBIC 7.5MG TABS 1 QD-daily - No Longer Active CLOBETASOL PROPIONATE 0.05% ML 1 DIRECTE - No Longer Active head -derm NEXIUM 40MG CAPS 1 QAM - No Longer Active Advance Directives Directive Yes / No Effective Date File Name No Information Encounters Encounter Description Practice Location Reason(s) For Visit Diagnoses Date Provider Providers Copied on Encounter [facility], [address], [place], [place], [address], tel:[phone] Bernie No Information Dorantesmable Sonih. [address], [place], [id number]. tel:[phone] [facility], [address], [place], [place], [address], tel:[phone] [facility] LONG-TERM USE MEDS NECABNORMAL WEIGHT GAINMIXED HYPERLIPIDEMIA Dorantes Nuria. [address], [place], [id number]. tel:[phone] [facility], [address], [place], [place], [address], [place] tel:[phone] [facility] URINARY FREQUENCYOTHER PSORIASIS DorantesProFibrixh. [address], [place], [address]. tel:[phone] [facility], [address], [place], [place], [address], [place] tel:[phone] [facility] JOINT PAIN-SHLDER DorantesTranzh. [address], [place], [id number]. tel:[phone] [facility], [address], [place], [place], [address], tel:[phone] [facility] URIN TRACT INFECTION NOS DorantesTranzh. [address], [place], [address]. tel:[phone] [facility], [address], [place], [place], [address], [place] tel:[phone] Bernie No Information Jayna Sonih. [address], [place], [address]. tel:[phone] [facility], [address], [place], [place], [address], [place] tel:[phone] [facility] CHR AIRWAY OBSTRUCT NECPRSNL HST COLONIC POLYPSSCREEN MAL NEOP-RECTUM Jayna Sonih. [address], [place], [address]. tel:[phone] [facility], [address], [place], [place], [address], [place] tel:[phone] [facility] ABN SERUM ENZY LEVEL NEC Jayna Sonih. [address], [place], [address]. tel:[phone] [facility], [address], [place], [place], [address], [place] tel:[phone] [facility] OTHER ATOPIC DERMATITIS Jayna Sonih. [address], [place], [address]. tel:[phone] [facility], [address], [place], [place], [address], [place] tel:[phone] [facility] ROUTINE MEDICAL EXAM Jayna Sonih. [address], [place], [address]. tel:[phone] [facility], [address], [place], [place], [address], [place] tel:[phone] [facility] ESOPHAGEAL REFLUX Jayna Sonih. [address], [place], [address]. tel:[phone] Family History Family Member Type Diagnosis Age At Onset No Information Payers Payer name Insurance type Covered democrat ID Authoriza tion(s) No Information Social History Type Description Quantity Date Captured Comments Sex Female Smoking Status No Information Chief Complaint And Reason For Visit No Information Reason For Referral Reason For Referral No Information History Of Present Illness Encounter Date Complaint History Of Prese nt Illness No Information Functional Status Date Functional Assessmen t No Information Instructions Date Instruction Additional Infor mation No Information Assessments Type Assessment Date No Information Patient Care Teams Name Effective Dates (start - stop) Status Members No Information
[2025-05-06 11:39] LABS: Hematocrit 35.1 % (37.0-47.0); Hemoglobin 10.9 g/dL (12.0-15.0); Immature Granulocyte Percent A 0.4 % (0-0.5); Lymphocytes Absolute Auto 0.72 K/mm3 (0.9-3.2); Mean Corpuscular HGB Conc 31.1 g/dl (32-36); Mean Corpuscular Hemoglobin 29.9 pg (26-34); Mean Corpuscular Volume 96.2 fl (80-100); Nucleated Red Blood Cells Absolute Auto 0.000 K/mm3 (0.0-0.012); Nucleated Red Blood Cells Perc 0.0 % (0.0-0.2); Platelet Count Result 228 k/mm3 (150-375); Red Blood Count 3.65 M/mm3 (4.2-5.4); White Blood Count 5.1 K/mm3 (4.5-10.0)
[2025-05-06 11:59] LABS: Alanine Aminotransferase 20 U/L (6-35); Albumin Level 3.8 g/dL (3.5-5.1); Alkaline Phosphatase 50 U/L (38-126); Anion Gap 6 mmol/L (4-12); Aspartate Amino Transferase 26 U/L (14-36); Bilirubin,Total 1.0 mg/dL (0.2-1.3); Blood Urea Nitrogen 11 mg/dL (7-17); Calcium 9.1 mg/dL (8.4-10.2); Carbon Dioxide 26 mmol/L (22-30); Chloride 104 mmol/L (98-107); Estimated Glomerular Filt Rate > 60; Glucose 93 mg/dL (65-110); Potassium 4.1 mmol/L (3.4-5.0); Sodium 136 mmol/L (137-145); Total Protein 6.6 g/dL (6.3-8.2)
--- OUTSIDE RECORDS SUMMARY | 2025-05-06 12:04 | XMS_ITS | Encounter Summary ---
Author Organization [facility] Address [address] [place] [address] Care Team Providers Care Tobacco Sizer Name Role Phone Toma Perea MD Primary Care Provider Encounter Details Date Type Department Care Team (Late st Contact Info) Description 04/18/2014 Orders Only [facility] Health Information Management [address] [place] [address] Scanning, Provider Social History Tobacco Use Types Packs/Day Years Used Date Smoking Tobacco: Never Assessed Comments Unknown Sex and Gender Information Value Date Recorded Sex Assigned at Not on file Legal Sex Female 1:36 PM 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
--- OUTSIDE RECORDS SUMMARY | 2025-05-06 12:04 | XMS_ITS | Clinical Summary ---
Author Organization [facility] Address [address] [place] [address] Care Team Providers Care Small Lot Operator Name Role Phone Carol Ann Desir Primary Care Provider [phone] Source Comments [facility],non-owned Affiliates and Associated Physician Practices is amultiple site organization consisting of ambulatory clinics and hospital sitesin [place], [place], [place] and [place]. This disclosure is being madepursuant to the Care Everywhere program and may not contain all information available regarding this patient. Last updated 18.[facility] Allergies Active Allergy Reactions Criticality Noted Date Comments Ciprofloxacin Itching Low Contrast-Iodinated Agents For Ct/Other Other Low 06/18/2015 Trouble breathing Ioversol Anaphylaxis High 04/27/2025 Quinolones Skin Reactions Medium Sulfa Drugs Itching Low 06/18/2015 Medications * Be aware that medications may not be up to date on this document. Alwaysverify current medications with the patient. metFORMIN (GLUCOPHAGE) 500 MG tablet 12/07/19 17 Active tacrolimus (PROTOPIC) 0.1 % ointment 100 g 5 12/26/19 17 Active pravastatin (PRAVACHOL) 40 MG tablet 12/07/19 17 Active Vitamin D3 (CHOLECALCIFER OL) 2000 UNITS capsule Take by mouth. 12/26/19 17 Active Apremilast (OTEZLA) 30 MG Take by mouth 2 times daily Active Ivermectin (SOOLANTRA) 1 % To face prn Active senna-docusate (SENOKOT-S) 8.6-50 MG tablet Take 1 tablet by mouth once daily 30 tablet 02/29/20 19 Active Additional Information Patient not taking.Reason: Patient adjusted, Reported on 05/01/2025 ibuprofen (MOTRIN) 600 MG tablet Take 1 tablet by mouth every 6 hours as needed for Pain 30 tablet 02/29/20 19 Active clobetasol (Temovate) 0.05 % cream Apply to affected area 2 times daily as needed 12/25/19 24 Active Semaglutide (OZEMPIC, 2 MG/DOSE, SC) Inject subcutaneously every 7 days Active rosuvastatin (Crestor) 5 MG tablet Take 1 (one) tablet by mouth once daily Active spironolactone (Aldactone) 25 MG tablet Take 1 (one) tablet by mouth once daily Active ibuprofen (Motrin) 600 MG tablet Take 1 (one) tablet by mouth every 6 hours as needed for Pain 30 tablet 05/01/20 25 Active acetaminophen (Tylenol) 325 MG tablet Take 2 (two) tablets by mouth every 6 hours as needed for Pain Maximum allowable Acetaminophen amount = 4 Grams (4000 mg) / 24 hours. 30 tablet 05/01/20 25 Active oxyCODONE, immediate release, (Roxicodone) 5 MG tabletIndicati ons:Abdominal wall seroma, sequela Take 1 (one) tablet by mouth every 6 hours as needed for Pain 12 tablet 05/01/20 25 Active senna-docusate (Senokot-S) 8.6-50 MG tablet Take 1 (one) tablet by mouth once daily 30 tablet 05/01/20 25 Active acetaminophen (TYLENOL) 325 MG tablet Take 2 tablets by mouth every 6 hours as needed for Pain Maximum allowable Acetaminophen amount = 4 Grams (4000 mg) / 24 hours. 30 tablet 02/29/20 19 025 Discontin ued(Tx Complete) oxyCODONE (OXY-IR) 5 MG capsule Take 1 capsule by mouth every 6 hours as needed for Pain 30 tablet 02/29/20 19 025 Discontin ued(Tx Complete) Active Problems Problem Noted Date Diagnosed Date Abdominal wall seroma 04/22/2025 Encounters Date Type Department Care Team Description 05/01/2025 8:59 AM CDT Anesthesia Event [facility] [address] [place] [address] Timoteo Cortez MD 05/01/2025 8:45 AM CDT - 05/01/2025 10:15 AM CDT Surgery [facility] [address] [place] [address] Vesna Ba MD EXCISION MASS OR TUMOR ABDOMINAL WALL 05/01/2025 6:15 AM CDT - 05/01/2025 11:45 AM CDT Hospital Encounter [facility] [address] [place] [address] Vesna Ba MD Surgery General Discharge Disposition: Home or Self Care 05/01/2025 Travel 04/27/2025 Travel 04/22/2025 9:15 AM CDT Office Visit [facility] General Surgery [address] [place] [address] Vesna Ba MD Abdominal wall seroma, sequela (Primary Dx) 04/22/2025 Orders Only [facility] General Surgery [address] [place] [address] Vesna Ba MD Abdominal wall seroma, sequela from Last 3 Months Family History Medical History Relation Name Comments [...] Smoking Tobacco: Former Cigarettes Smokeless Tobacco: Never Tobacco Cessation:Counseling Given: Not Answered Alcohol Use Standard Drinks/Week Comments No 0 (1 standard drink = 0.6 oz pur e alcohol) Comments Unknown Sex and Gender Information Value Date Recorded Sex Assigned at Not on file Legal Sex Female 5:27 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 Gender Identity Not on file Sexual Orientation Not on file 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 Not on file Not on file Last Filed Vital Signs Vital Sign Reading Time Taken Comments Blood Pressure 135/88 05/01/2025 10:45 AM CDT Pulse 56 05/01/2025 10:45 AM CDT Temperature 36 C (96.8 F) 05/01/2025 9:50 AM CDT Respiratory Rate 18 05/01/2025 10:45 AM CDT Oxygen Saturation 95% 05/01/2025 10:32 AM CDT Inhaled Oxygen Concentration - - Weight 108.9 kg (240 lb) 05/01/2025 6:56 AM CDT Height 162.6 cm (5' 4) 05/01/2025 6:56 AM CDT Body Mass Index 41.2 05/01/2025 6:56 AM CDT Plan of Treatment Upcoming Encounters Date Type Department Care Team (Late st Contact Info) Description 05/13/2025 9:30 AM CDT Office Visit [facility] - General Surgery [facility] [place] [address] Vesna Ba MD [facility] [address] Health Maintenance Due Date Last Done Comments [...] 07/09/2017 07/09/2015, 11/2014, 02/24/2014, Additional history exists Respiratory Syncytial Virus (RSV) Vaccine Pt: or over 60 yrs (1 - Risk 60-74 years 1-dose series) 2017 DEPRESSION SCREENING 08/06/2024 MEDICARE AWV CALENDAR YEAR 2024 COVID-19 VACCINE (1 - season) 2025 INFLUENZA VACCINE (#1) 2025 SCREENING FOR DIABETES 05/01/2028 , 02/28/2019, 02/28/2019, Additional history exists BONE DENSITY TESTING Completed 07/28/2016 HEPATITIS B [...] this topic Medical Devices Implanted Type Area Burrer Marker Axle Device Identifier Shelf Expiration Date Model / Serial / Lot Mesh Srg Ventralight St Sepra Echo Implanted:Qty: 1 on 02/28/2019 by Vesna Ba MD at [facility] N/A: Abdomen [employer] 11/01/2019 [id number] / / [id number] Procedures Procedure Name Priority Date/Time Associated Diagnosis Comments CARDIAC RHYTHM STRIP ORDER 05/04/2025 6:43 PM CDT PATHOLOGY TISSUE EXAM (STL) Routine 05/01/2025 9:27 AM CDT Abdominal wall seroma, sequela ENDOTRACHEAL TUBE NOTE Routine 05/01/2025 9:18 AM CDT GA EXC ABD WALL LISA DEEP <5 CM 05/01/2025 8:39 AM CDT Abdominal wall seroma, sequela Case Notes 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 us Scanned Document CARDIAC SERVICES ORDERABLES Fin al Result * PATHOLOGY TISSUE EXAM (STL) (05/01/2025 9:27 AM CDT) Case Report Surgical Pathology Report Case: [id number] Authorizing Provider: Vesna Ba MD Collected: 05/01/2025 09:27 AM Ordering Location: [facility] Received: 05/01/2025 09:59 AM Pathologist: Phuong Barrera MD Specimen: Abdominal Mass, ABDOMINAL MASS 05/04/2025 10:47 AM [facility] Final Diagnosis Abdominal mass, excision - Consistent with seroma with fibrosis and calcifications 05/04/2025 10:47 AM [facility] at 1046 CDT Clinical History The patient is a 69-year-old woman. 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 Operative procedure: excision of abdominal wall mass. 05/04/2025 10:47 AM [facility] Gross Description The requisition and specimen(s) are identified with the patient's name Sergio Garcia. Received fresh and subsequently fixed in formalin, specimen A, abdominal mass, is a 7.9 x 6.3 x 4.9 cm unoriented and disrupted cystic cavity. The outer surface has adherent pink-martinez to yellow-martinez soft tissue and is inked blue. Sectioning shows a martinez-white and smooth inner lining with patchy calcifications. The cavity is filled with pink-martinez and friable soft tissue. Supervisor Roving Department sections are submitted in cassettes A1-A5, A5 containing friable soft tissue./SKS 05/04/2025 10:47 AM [facility] Microscopic Description Microscopic examination substantiates the above diagnosis. 05/04/2025 10:47 AM [facility] Pathologist Location at [facility] 05/04/2025 10:47 AM [facility] Disclaimer All histochemical and/or immunohistochemical results are interpreted with controls that demonstrate appropriate staining reactions before reporting results. Note on use of immunocytochemistry reagents: This test was developed and its performance characteristic determined by [facility], Department of Laboratory Medicine. It has not been cleared or approved by the U.S. Food and Drug Administration (FDA). The FDA has determined that such clearance or approval is not necessary. The test is used for clinical purpose. It should not be regarded as investigational or for research. This laboratory is certified to perform high complexity testing. The performance characteristics of the IHC/LION assays have been validated on formalin-fixed paraffin embedded tissues only. The assays have not been validated on decalcified tissues. Results should be interpreted with caution. 05/04/2025 10:47 AM CDT [facility] Embedded Images 05/04/2025 10:47 AM CDT [facility] Pathology/Cytolo gy ABDOMINAL MASS / Unknown 05/01/2025 9:27 AM CDT 05/01/2025 9:59 AM CDT Comment:Pre-op diagnosis: Abdominal wall seroma, sequela [S30.1XXS] us Vesna Ba MD LAB - PATHOLOGY/CYTOLOGY ORDE CELSO Final Result [facility] [address] [place] [address] * ETT LINE PERFORMABLE (05/01/2025 9:18 AM CDT) Narrative Felicia Billy APRN-CRNA - 05/01/2025 9:18 AM CDT Felicia Billy APRN-CRNA 05/01/2025 9:18 AM Endotracheal Tube Placement: Patient Location: OR. Intubation Event Date/Time: 05/01/2025 9:06 AM Procedure: intubation ([id number]) Procedure Section: Sedation: under general anesthesia. Indications for Airway Management: anesthesia Induction: modified rapid sequence Patient Position: supine Mask Ventilation: not attempted. Blade Type: Ninfa Blade Size: 3 Laryngoscopy View: grade 1 (full cords) Intubation Adjuncts: stylet Tube: endotracheal tube Placement: oral Tube type: cuff - inflated Tube Size (MM): 7 Depth of Insertion (CM): 20 Measured From: gums Cuff volume (mL): 7 Cuff Inflated With: air Number of Attempts: 1. Placement Verified By: direct visualization, bilateral breath sounds, chest auscultation and CO2 monitor Tube secured with: adhesive tape. Dentition unchanged? Yes Difficult Airway? No. Procedure Start Time: 05/01/2025 9:06 AM. Staff Section Anesthesia Provider: Felicia Billy APRN-CRNA, Performed the procedure us Timoteo Cortez MD GENERAL ANESTHESIA ORDERABL ES Final Result * GLUCOSE - POINT OF CARE (05/01/2025 7:03 AM CDT) Glucose WB/POC 87 70 - 99 mg/dL 05/01/2025 7:14 AM CDT [facility] Specimen Type Arterial/C apillary 05/01/2025 7:14 AM CDT [facility] Blood BLOOD SPECIMEN / Unknown 05/01/2025 7:03 AM CDT 05/01/2025 7:14 AM CDT us Vesna Ba MD LAB - POINT OF CARE ORDERABLE S Final Result [facility] [address] [place] [address] from Last 3 Months Insurance [facility] Member Subscriber Plan / Payer (Ef fective 2018-Present) Name:Sergio Garcia Relation to Subscriber:Spouse Name:EPIFANIO GARCIA Subscriber ID:Not on file Payer ID:[id number] (NAIC) Type:[facility] Address: [facility] [address] [place] [id number] [facility] MANAGED MEDICARE ADV Care Teams Small Lot Operator Relationship Specialty Start Date End Date Carol Ann Desir DO PCP - General Student Resident 05/07/24
--- OUTSIDE RECORDS SUMMARY | 2025-05-06 12:04 | XMS_ITS | Clinical Summary ---
Author Organization [facility] Address [address] [place] [address] Phone Care Team Providers Care Wiper Blender Name Role Phone Jacki Barrientos MD Unavailable [phone] Arash Pollard MD Unavailable [phone] Mychal Álvarez MD Unavailable [phone] Virgen Cueva Unavailable Unavailable Provider, Not On [...] Comments Blood Pressure 120/70 06/30/2024 10:44 AM ANALYTICAL DATA MINER Pulse 75 06/30/2024 8:34 AM ANALYTICAL DATA MINER Temperature 37.1 C (98.8 F) 06/30/2024 10:44 AM ANALYTICAL DATA MINER Respiratory Rate 16 06/30/2024 10:44 AM ANALYTICAL DATA MINER Oxygen Saturation 97% 06/30/2024 10:44 AM ANALYTICAL DATA MINER Inhaled Oxygen Concentration - - Weight 108 kg (238 lb) 06/18/2024 1:53 PM ANALYTICAL DATA MINER Height 167.6 cm (5' 6) 06/18/2024 1:53 PM ANALYTICAL DATA MINER Body Mass Index 38.41 06/18/2024 1:53 PM ANALYTICAL DATA MINER Plan of Treatment Health Maintenance Due Date Last Done Comments Hepatitis C Virus (HCV) Screening 1955 Pneumococcal Immunization (5 0+ years) (1 of 2 - PCV) 1976 Zoster Immunization (1 of 2) 1976 Cologuard 2002 Immunochemical Fecal Occult Blood 2002 Mammogram 07/09/2016 07/09/2015, 01/26/2014 DEXA Bone Density 07/28/2018 07/28/2016 Influenza Immunization (#1) 2025 Medicare Initial AWV [id number] 04/06/2025 SARS-COV-2 Immunization ( season) 2025 07/23/2021, 11/12/2020, 10/20/2020 Colonoscopy 11/02/2025 11/03/2015 Colorectal [...] this topic Medical Devices Implanted Type Area Assembler Wire Group Device Identifier Shelf Expiration Date Model / Serial / Lot Technis 1-Piece Iol With Simplicity Delivery Sysetm Implanted:Qty: 1 on 05/26/2024 by Dina Edward MD PhD at [facility] 06/14/2026 [id number] / [id number] / [id number] Right Lens Implanted:Qty: 1 on 06/30/2024 by Dina Edward MD PhD at [facility] Right: Eye [employer] 07/07/2026 [id number] / [id number] / [id number] Procedures Procedure Name Priority Date/Time Associated Diagnosis Comments [facility] BONE DENSITOMETRY AXIAL SKELETON Routine 07/28/2016 8:27 AM ANALYTICAL DATA MINER Osteoporosis HM COLONOSCOPY Routine 11/03/2015 THEE DIAG BILATERAL DIGITAL W CAD Routine 07/09/2015 9:50 AM ANALYTICAL DATA MINER Malignant neoplasm of right female breast, unspecified site of breast from Last 3 Months or Most Recently Relevant to Health Maintenance Results * [facility] BONE DENSITOMETRY AXIAL SKELETON (07/28/2016 8:27 AM ANALYTICAL DATA MINER) Anatomical Region Laterality Modality BODY N/A Other 07/28/2016 9:14 AM ANALYTICAL DATA MINER Impressions 07/28/2016 9:18 AM ANALYTICAL DATA MINER IMPRESSION: Low bone mass Bone mineral density: [...] of Osteoporosis (http://www.nof.org/professionals/clinical-guidelines) Narrative 07/28/2016 9:18 AM ANALYTICAL DATA MINER EXAMINATION: DXA Bone Density HISTORY: 60 year old female with given history of screening. Current Height: 64 inches Maximum Height: Not known inches Weight: 300 pounds RISK FACTORS: None COMPARISON(S): 04/18/2014 FOOD DEMONSTRATOR/MODEL: [employer]ue (S/N [id number]) FINDINGS: AP lumbar spine L1-L4 Total BMD is 0.89 g/bu6D-gvyen is -2.5 Most recent prior BMD was 0.81 g/cm2 There has been a 9.8% increase in BMD which is statistically significant. Left Hip Current Total BMD is 0.98 g/cu8N-mlwmy is -0.3 Most recent prior Total BMD was 1.0 g/cm2 There has been a 3.6% decrease in BMD which is statistically significant. Current femoral neck BMD is 0.89 g/ed5A-pdwyf is -1.0 Fracture risk assessment (FRAX): 10 [...] 300 pounds RISK FACTORS: None COMPARISON(S): 04/18/2014 FOOD DEMONSTRATOR/MODEL: [employer]ue (S/N [id number]) FINDINGS: AP lumbar spine L1-L4 Total BMD is 0.89 g/ge4C-xezxe is -2.5 Most recent prior BMD was 0.81 g/cm2 There has been a 9.8% increase in BMD which is statistically significant. Left Hip Current Total BMD is 0.98 g/bh7V-klhjw is -0.3 Most recent prior Total BMD was 1.0 g/cm2 There has been a 3.6% decrease in BMD which is statistically significant. Current femoral neck BMD is 0.89 g/ae9P-oekno is -1.0 Fracture risk assessment (FRAX): 10 [...] Result * Diag Mammogram (07/09/2015 9:50 AM ANALYTICAL DATA MINER) Anatomical Region Laterality Modality breast Bilateral Mammography 07/09/2015 8:53 AM ANALYTICAL DATA MINER Narrative 07/10/2015 12:58 PM ANALYTICAL DATA MINER - [facility] DIAG BILATERAL DIGITAL W CAD BILATERAL DIGITAL DIAGNOSTIC MAMMOGRAM WITH CAD WITH MEDIOLATERAL MEDIOLATERAL OBLIQUE CRANIOCAUDAL: 07/09/2015 The study was acquired using digital technology and interpreted from soft copy. Current study was also evaluated with ICAD version 7.2. CLINICAL: Previous history of breast cancer 2013. No current complaints. Sister with pre-menopausal breast cancer. COMPARISONS: Comparison is made to exams dated: 01/26/2014, 01/26/2014 [facility], 06/04/2012, and 05/25/2012 [facility] Murillo [facility]. BREAST [...] signed by: Kody Gambino M.D. bs/rodrigo:07/09/2015 16:48:34 Programming Engineer: Jackie JOHNSON(Inocencio)(Radha), [facility] letter sent: Additional Imaging Reading location: [facility] BI-RADS: 0 Additional Imaging Evaluation Needed Procedure [...] is made to [facility] and [facility]2012 [facility]. [...] contacted. Electronically signed by: Kody cancino/rodrigo:07/09/2015 16:48:34 Programming Engineer: Jackie NORRIS)(Radha), [facility] letter sent: Additional Imaging Reading location: [facility] BI-RADS: 0 Additional Imaging Evaluation Needed Jacki Barrientos MD IMG MAMMO ORDERABLES F inal Result from Last 3 Months or Most Recently Relevant to Health Maintenance Insurance MEDICARE C [facility] [place] [address] Care Teams Wiper Blender Relationship Specialty Start Date End Date Provider, Not On File [place] PCP - General 05/26/24 Jacki Barrientos MD Consulting Physician General Surgery 06/17/15 Arahs Pollard MD Consulting Physician Oncology 06/18/15 Mychal Álvarez MD Consulting Physician Radiation Oncology 06/18/15 Virgen Cueva Gastroenterology 09/01/16
--- OUTSIDE RECORDS SUMMARY | 2025-05-06 12:04 | XMS_ITS | Clinical Summary ---
Author Organization [facility] [address] Address [address] [place] [address] Care Team Providers Care Baker Pie Name Role Phone Toma Perea MD Primary [...] on file Legal Sex Female 1:36 PM LOCATION WORKER Gender Identity Not on file Sexual Orientation Not on file Last Filed Vital Signs Vital Sign Reading Time Taken Comments Blood Pressure 118/70 05/24/2018 9:00 AM CDT Pulse 92 05/24/2018 9:00 AM CDT Temperature - - Respiratory Rate - - Oxygen Saturation 96% 05/24/2018 9:00 AM CDT Inhaled Oxygen Concentration - - Weight 127 kg (280 lb) 09/27/2018 8:07 AM LOCATION WORKER Height 167.6 cm (5' 6) 09/27/2018 8:07 AM LOCATION WORKER Body Mass Index 45.19 09/27/2018 8:07 AM LOCATION WORKER Plan of Treatment Not on file Insurance [employer] PPO [place] Care Teams Baker Pie Relationship Specialty Start Date End Date Toma Perea MD PCP - General Family Medicine 09/13/18
--- OUTSIDE RECORDS SUMMARY | 2025-05-06 12:04 | XMS_ITS | Encounter Summary ---
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 Historical Provider Final Res ult * SCAN - LABS (09/06/2017 12:00 AM HUSKER OPERATOR) Narrative 09/06/2017 12:00 AM HUSKER OPERATOR Ordered by an unspecified provider. Historical Provider Final Res ult documented in this encounter Visit Diagnoses Not on filedocumented in this encounter Care Teams Manager Sports Relationship Specialty Start Date End Date Toma Perea MD PCP - General Family Medicine 09/13/18 documented as of this encounter
--- OUTSIDE RECORDS SUMMARY | 2025-05-06 12:04 | XMS_ITS | Clinical Summary ---
Author Organization [facility] Address [facility] [place] [address] Care Team Providers Care Distresser Name Role Phone Unavailable Primary Care Provider [...] 1 - Tdap) 1976 Mammogram Screening 1997 Pneumococcal Vaccine: 50+ Ye ars (1 of 1 - PCV) 10/14/2007 Zoster Vaccines (1 of 2) 10/14/2007 Dexa Scan (General) 2022 COVID-19 Vaccine ( - 2023-2 5 season) 2025 RSV Immunization or 60+ Years (1 - [...]
--- OUTSIDE RECORDS SUMMARY | 2025-05-06 12:04 | XMS_ITS | Encounter Summary ---
Author Organization [facility] Address 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
--- OUTSIDE RECORDS SUMMARY | 2025-05-06 12:04 | XMS_ITS | Clinical Summary ---
Author Organization [facility] Address [address] [place] [address] Phone Care Team Providers Care Lactation Coordinator Name Role Phone Terri Sim MD Primary Care Provider [phone] Allergies Active Allergy Reactions Criticality Noted Date [...] on file Legal Sex Female 3:04 PM [employer] Gender Identity Not on file Sexual Orientation Not on file Last Filed Vital Signs Vital Sign Reading Time Taken Comments Blood Pressure 132/84 07/10/2016 11:03 AM [employer] Pulse 76 07/10/2016 11:03 AM [employer] Temperature 35.9 C (96.6 F) 11/03/2015 12:16 PM CDT Respiratory Rate 16 11/03/2015 12:36 PM CDT Oxygen Saturation 98% 11/03/2015 12:36 PM CDT Inhaled Oxygen Concentration - - Weight 136.5 kg (301 lb) 07/10/2016 11:03 AM [employer] Height 162.6 cm (5' 4) 07/10/2016 11:03 AM [employer] Body Mass Index 51.67 07/10/2016 11:03 AM [employer] Plan of Treatment Health Maintenance Due Date [...] Advance Directives For more information, please contact: [phone] * Full Code (Latest Code Status on File) Date Activated Date Inactivated Comments 11/03/2015 10:56 AM 11/03/2015 2:47 PM Care Teams Lactation Coordinator Relationship Specialty Start Date End Date Terri Sim MD PCP - General Family Practice 10/05/15
== END 2025-05-06 11:23 | disposition home or self-care (01) ==
LOC: ANHLAB 11:23
PROVIDERS: PCP Family Medicine; Visit Provider Family Medicine
DX: E11.59 Type 2 diabetes mellitus with other circulatory complications (principal)
CPT/HCPCS: 36415; 80053; 85025